=== PATIENT | female | born 1945 | race Caucasian/White ===

== ENCOUNTER 2020-04-05 09:19 | Emergency (ER) | payer MEDICARE, SELFPAY ==
[2020-04-05 09:48] VITALS: BP 162/51; PULSE 58; RESP 16; TEMP 36.8; O2SAT 97; BMI 34.9
--- NOTE | 2020-04-05 09:57 | CT_ITS ---
EXAMINATION: CT HEAD WITHOUT CONTRAST CT CERVICAL SPINE WITHOUT CONTRAST CLINICAL INFORMATION: Status post fall with head injury. No loss of consciousness. COMPARISON: 04/07/2009 TECHNIQUE: Multidetector CT imaging of the head and cervical spine was performed without the use of intravenous contrast. Multiplanar reformats are reviewed. This CT examination was performed using dose optimization techniques as appropriate, variously including the following: *Automated exposure control *Adjustment of mA and/or kV according to patient size (this includes techniques or standardized protocols for targeted exams where dose is matched to indication/reason for exam; i.e. extremities or head) *Use of iterative reconstruction technique DLP: 1143 mGy-cm. FINDINGS: There is no evidence of acute intracranial hemorrhage or territorial infarction. No abnormal mass effect or midline shift is seen. Penaloza to white matter differentiation is well preserved. No extra-axial fluid collections are identified. The ventricles are normal in size. Coarse bilateral basal ganglial calcifications, more pronounced on the left. Soft tissue swelling/subgaleal hematoma along the right frontal calvarium. Underlying calvarium intact. The mastoid air cells and visualized portions of the paranasal sinuses are well-aerated. Atlantooccipital alignment is maintained. The vertebral bodies and posterior elements align normally. No acute fracture or subluxation. Vertebral body heights are preserved. Prominent endplate osteophytes present at C5-C6 and C6-C7. Facet arthropathy throughout the cervical spine with ankylosis of the posterior articular pillars bilaterally at C3-C4 and C4-C5. This results in slight anterolisthesis of C3 on C4. Posterior osteophytic ridging present at C3-C4 and C4-C5. There is at least moderate central canal stenosis at C5-C6 and mild central canal stenosis at C6-C7. There is at least mild left foraminal narrowing at C5-C6. The cervicomedullary junction and spinal cord are grossly unremarkable. The paraspinal soft tissues are unremarkable. The imaged lung apices are clear CT/CT cervical spine wo con IMPRESSION: No acute intracranial pathology. No cervical spine fracture or malalignment.
--- NOTE | 2020-04-05 09:57 | XR_ITS ---
EXAMINATION: XR SHOULDER, LEFT CLINICAL INFORMATION: Status post fall with left shoulder pain and injury COMPARISON: None TECHNIQUE: AP external rotation and scapular Y views of the left shoulder. FINDINGS: There is normal alignment without acute fracture or dislocation. There is glenohumeral and upper mid clavicular joint space narrowing with associated hypertrophic changes. Overlying soft tissues are normal. The visualized portion of the lungs is clear. XR/XR shoulder LT min 2V IMPRESSION: Degenerative changes of the left shoulder. No acute fracture or dislocation.
--- NOTE | 2020-04-05 09:57 | XR_ITS ---
EXAMINATION: XR CHEST CLINICAL INFORMATION: Status post fall COMPARISON: None TECHNIQUE: 2 views of the chest were obtained. FINDINGS: Normal cardiomediastinal silhouette. Lungs are clear without focal consolidation. No pleural effusion or pneumothorax. No acute osseous abnormality. Multilevel degenerative changes of the spine. XR/XR chest 2V IMPRESSION: No acute disease within the chest.
--- NOTE | 2020-04-05 09:57 | XR_ITS ---
EXAMINATION: XR KNEE, LEFT CLINICAL INFORMATION: Status post fall with left knee pain/injury COMPARISON: 03/15/2010 TECHNIQUE: Four views of the left knee. FINDINGS: There is a left knee arthroplasty. The hardware appears intact without complication. No acute fracture or dislocation. There are vascular calcifications. Overlying soft tissues are intact. XR/XR knee LT 4V IMPRESSION: No acute bony abnormality of the left knee. Status post left knee arthroplasty. Hardware is intact without acute complication.
--- NOTE | 2020-04-05 09:58 | ED.FALL ---
HPI - Fall General Chief Complaint: Fall Stated Complaint: fall head injury Time Seen by Provider: 04/05/20 09:42 Source: patient Mode of arrival: ambulatory Limitations: no limitations History of Present Illness HPI Narrative: 74yoF c PMHx of DM, hypertension, hypothyroidism, gout, GERD and bilateral knee replacement presenting to the ED after she had a mechanical fall at [employer] yesterday where she was walking around a car that was parked lost her balance fell to the ground injuring her right forehead/left shoulder and left knee. Since then has been having a persistent headache to the frontal aspect of her head. The fall was witnessed by her . Patient denies loss of consciousness. Patient denies being on any blood thinners. Patient was seen at urgent care this morning and referred to the ER. Patient denies any symptoms prior to the fall. She denies any dizziness, changes in vision, nausea/vomiting, palpitations, chest pain or shortness of breath, any symptoms or any other symptoms complaints or concerns at this time. Related Data Previous Rx's Medication Instructions Recorded acetaminophen [Tylenol Extra 1,000 mg PO Q6H PRN #10 tab 04/05/20 Strength] Allergies Allergy/AdvReac Type Severity Reaction Status Date / Time meperidine [From DEMEROL] Allergy Unknown UNKNOWN Verified 04/05/20 10:02 morphine [MORPHINE] Allergy Unknown SLEEPY Verified 04/05/20 10:02 Review of Systems Review of Systems: Constitutional : No changes in activity, No lethargy, No recent prior head injury, No agitation, No increased fussiness ENT/Mouth : No Ear Pain, No Nasal discharge/drainage Eyes: No Eye Pain, No Swelling, No Redness, No Foreign Body, No Vision Changes Cardiovascular : No Chest Pain, No SOB Respiratory : No Cough Gastrointestinal : No Nausea, No Vomiting, No abdominal Pain Genitourinary : No Dysuria, No Urinary Frequency, No Urinary Incontinence, No Urgency, No Flank Pain Musculoskeletal : + joint pain, No neck stiffness, No back pain/injury Skin : No lacerations Neuro : + Headache, No unsteady gait, No Paresthesias, No Loss of Consciousness, No altered mental status Yes all other systems are reviewed and are negative [facility] Past Medical History Attestation statement: The following information was validated with the patient. Medical History Diabetes GERD (gastroesophageal reflux disease) Gout Hypertension Hypothyroid Surgical History History of bilateral knee replacement Social History Social History Smoking Status: Never smoker Use of substances other than those prescribed or required for medical reasons: No Advance Directives: No Advance Directives Information Provided: No Physical Exam Vital Signs: Vital Signs: Last Vital Signs Temp 98.2 F 04/05/20 09:48 Pulse 60 04/05/20 10:16 Resp 16 04/05/20 10:16 BP 153/57 H 04/05/20 10:16 Pulse Ox 98 04/05/20 10:16 Body Mass Index 34.9 Vital signs have been reviewed as normal and appeared to be correct. Blood pressure normal. Heart rate normal. Respiration rate normal. Temperature normal. Oxygen saturation normal. Appearance: Alert. Oriented X3. No acute distress. Head: Patient c ecchymosis, abrasion and tenderness to palpation and soft tissue swelling to right aspect of forehead. Otherwise the rest of the external exam is normal. No lacerations/foreign bodies/obvious deformities noted. No Able to rotate head bilaterally. Eyes: PERRLA. EOMI. No nystagmus noted. Conjunctiva and sclera normal. Eyelids normal. Corneal reflex normal. ENT: EAC normal. TM's Normal. No septal hematoma. No hemotympanum noted. Hearing normal. Pharynx normal. Uvula midline. tongue midline. Moist mucous membranes. No trismus noted. No drooling noted. No muffled voice noted. Neck: Normal inspection. Neck supple. FROM. No adenopathy. Thyroid Normal. No meningeal signs. No neck mass noted. CVS: Normal heart rate and rhythm. Heart sound normal. No murmurs noted. Pulses normal throughout. Respiratory: No respiratory distress. Painless inspiration. Breath sounds normal. No wheezes/rales/rhonchi noted. Chest nontender. No accessory muscle usage noted or decreased air movement noted. Back: Full range of motion noted. Skin: Skin warm and dry. Normal skin color. Normal skin turgor. No rashes/lesions/lacerations noted. Extremities: Tenderness to palpation to anterior left AC joint. No obvious deformities noted. Patient has full range of motion. No abrasions/lacerations/ecchymosis/foreign bodies/ecchymosis. Patient with ecchymosis to left knee at the patellar aspect with mild soft tissue swelling and tenderness to palpation. No obvious deformities noted. Patient has full range of motion noted. No laxity noted. No abrasion/laceration/foreign bodies noted. Otherwise all other Extremities exhibit normal range of motion and nontender. Able to shrug shoulders bilaterally and keep up against resistance. Neuro: Oriented X 3. No motor deficit. No sensory deficit. Reflexes normal. Moving all extremities. No focal motor deficits. Cranial nerves II-XI intact bilaterally. Facial strength normal. Normal cognition. Speech normal. Gait normal. Strength 5/5 throughout. No pronator drift. No tremor noted. No fasciculations noted. Muscle tone normal throughout. No asterixis noted. Raxbah-kb-wfld test normal. Heel to dunbar test normal. No rigidity noted. Course Course Course Narrative: 10am - 74yoF c PMHx of DM, HTN, hypothyroidism, gout, GERD and bilateral knee replacement presenting to the ED after she had a mechanical fall at [employer] c head injury no loc/blood thinners c persistent headache, pain to left shoulder/left knee - On Exam patient is alert and oriented x3. No focal neuro deficits noted. Not in any acute distress. Patient noted to have soft tissue swelling/ecchymosis to right forehead, tenderness to palpation to left shoulder and left knee. No obvious deformities full range of motion laxity noted. Patient has a normal steady gait. - Plan: Labs, CT scan of brain/cervical spine, CXR, left shoulder/left knee xray. Update the patient's tetanus provide tylenol for the patient's headache and re-evaluate. Reevaluation(s) Reevaluation #1: - BUN 29. TSH level 8.02. Otherwise all other labs WNL. - CXR WNL. CT scan of brain/cervical spine revealed chronic changes and patient is noted to have coarse bilateral basal ganglia calcifications more pronounced on the left and a soft tissue swelling/subgaleal hematoma along the right frontal calvarium. Otherwise no other acute processes. Xray of left shoulder/left knee processes noted. - patient is not having any thyroid pain at this time therefore I will instruct the patient to follow up her primary care provider tomorrow for further evaluation and treatment of her elevated thyroid. - I offered the patient a L of IV fluids although she declined and reported that she can drink p.o. fluids at home or Gatorade I suggested as well. Instructed to return if any new or worsening symptoms and to follow up with primary care provider. Patient understands agrees the plan. MDM - Fall Differential Diagnosis Differential diagnosis: Likely dislocation, fracture, compression fracture and concussion with loss of consciousness Medical Records Attestation: I reviewed the patient's medical records. Lab Data Attestation: I reviewed the patient's lab results. Result diagrams: 04/05/20 11:09 04/05/20 11:09 Labs: Lab Results 04/05/20 04/05/20 04/05/20 Range/Units 10:58 10:58 11:09 WBC 9.0 (4.8-10.8) X10*3/uL RBC 3.88 L (4.20-5.50) X10*6/uL Hgb 11.7 L (12.0-16.0) g/dl Hct 36.2 L (37-47) % MCV 93.3 (80-98) fL MCH 30.2 (27.0-33.0) pg MCHC 32.3 (31.0-35.0) g/dl RDW 14.0 (11.0-16.0) % Plt Count 240 (160-400) X10*3/uL MPV 11.6 (9.4-12.3) fL Immature Gran % (Auto) 0.4 (0.0-0.4) % Neut % (Auto) 60.4 (45-73) % Lymph % (Auto) 29.3 (20-40) % [place] % (Auto) 7.2 (2-11) % Eos % (Auto) 2.1 (0-4) % Baso % (Auto) 0.6 (0-2) % Lymph # (Auto) 2.6 (1.2-4.9) X10*3/uL [place] # (Auto) 0.7 (0.1-1.2) X10*3/uL Eos # (Auto) 0.2 (0.0-0.4) X10*3/uL Baso # (Auto) 0.1 (0.0-0.2) X10*3/uL Abs Immat Gran (auto) 0.04 H (0.00-0.03) X10*3/uL Absolute Neuts (auto) 5.4 (2.0-8.3) X10*3/uL Absolute Nucleated RBC 0.000 (0.0-0.012) X10*3/uL Nucleated RBC % (auto) 0.0 (0.0-0.2) /100WBC Hold Purple Top PT (10.8-13.0) SEC INR (0.9-1.1) APTT (24.1-38.0) SEC Hold Blue Top Sodium (135-145) mmol/L Potassium (3.3-5.1) mmol/l Chloride (96-108) mmol/L Carbon Dioxide (22-29) mmol/L Anion Gap (12-20) BUN (9-16) mg/dL Creatinine (0.5-1.4) mg/dL Estim Creat Clear Calc Estimated GFR Random Glucose (60-115) mg/dL Calcium (8.4-10.2) mg/dL Magnesium (1.6-2.6) mg/dL TSH (0.32-4.0) uIU/mL Urine Color STRAW Urine Appearance CLEAR Urine pH 7.0 (5.0-8.0) Ur Specific Hoople <= 1.005 (1.005-1.025) Urine Protein NEG (NEG-TRACE) MG/DL Urine Glucose (UA) NEG (NEG) MG/DL Urine Ketones NEG (NEG) MG/DL Urine Blood NEG (NEG) Urine Nitrite NEG (NEG) Ur Leukocyte Esterase NEG (NEG) Coronavirus (PCR) NEGATIVE (Negative) Influenza Type A (PCR) NEGATIVE (Negative) Influenza Type B (PCR) NEGATIVE (Negative) RSV RNA Qual (PCR) NEGATIVE (Negative) 04/05/20 04/05/20 04/05/20 Range/Units 11:09 11:09 11:09 WBC (4.8-10.8) X10*3/uL RBC (4.20-5.50) X10*6/uL Hgb (12.0-16.0) g/dl Hct (37-47) % MCV (80-98) fL MCH (27.0-33.0) pg MCHC (31.0-35.0) g/dl RDW (11.0-16.0) % Plt Count (160-400) X10*3/uL MPV (9.4-12.3) fL Immature Gran % (Auto) (0.0-0.4) % Neut % (Auto) (45-73) % Lymph % (Auto) (20-40) % [place] % (Auto) (2-11) % Eos % (Auto) (0-4) % Baso % (Auto) (0-2) % Lymph # (Auto) (1.2-4.9) X10*3/uL [place] # (Auto) (0.1-1.2) X10*3/uL Eos # (Auto) (0.0-0.4) X10*3/uL Baso # (Auto) (0.0-0.2) X10*3/uL Abs Immat Gran (auto) (0.00-0.03) X10*3/uL Absolute Neuts (auto) (2.0-8.3) X10*3/uL Absolute Nucleated RBC (0.0-0.012) X10*3/uL Nucleated RBC % (auto) (0.0-0.2) /100WBC Hold Purple Top SEE NOTE PT 11.6 (10.8-13.0) SEC INR 1.0 (0.9-1.1) APTT 29.8 (24.1-38.0) SEC Hold Blue Top SEE NOTE Sodium 142 (135-145) mmol/L Potassium 4.8 (3.3-5.1) mmol/l Chloride 104 (96-108) mmol/L Carbon Dioxide 26 (22-29) mmol/L Anion Gap 17 (12-20) BUN 29 H (9-16) mg/dL Creatinine 1.40 (0.5-1.4) mg/dL Estim Creat Clear Calc 34.6 Estimated GFR 37 Random Glucose 126 H (60-115) mg/dL Calcium 9.3 (8.4-10.2) mg/dL Magnesium 1.7 (1.6-2.6) mg/dL TSH 8.02 H (0.32-4.0) uIU/mL Urine Color Urine Appearance Urine pH (5.0-8.0) Ur Specific Hoople (1.005-1.025) Urine Protein (NEG-TRACE) MG/DL Urine Glucose (UA) (NEG) MG/DL Urine Ketones (NEG) MG/DL Urine Blood (NEG) Urine Nitrite (NEG) Ur Leukocyte Esterase (NEG) Coronavirus (PCR) (Negative) Influenza Type A (PCR) (Negative) Influenza Type B (PCR) (Negative) RSV RNA Qual (PCR) (Negative) Imaging Data CT scan of brain/cervical spine: Attestation: I personally reviewed and interpreted this imaging study as follows: Radiologist's impression: FINDINGS: There is no evidence of acute intracranial hemorrhage or territorial infarction. No abnormal mass effect or midline shift is seen. Penaloza to white matter differentiation is well preserved. No extra-axial fluid collections are identified. The ventricles are normal in size. Coarse bilateral basal ganglial calcifications, more pronounced on the left. Soft tissue swelling/subgaleal hematoma along the right frontal calvarium. Underlying calvarium intact. The mastoid air cells and visualized portions of the paranasal sinuses are well-aerated. Atlantooccipital alignment is maintained. The vertebral bodies and posterior elements align normally. No acute fracture or subluxation. Vertebral body heights are preserved. Prominent endplate osteophytes present at C5-C6 and C6-C7. Facet arthropathy throughout the cervical spine with ankylosis of the posterior articular pillars bilaterally at C3-C4 and C4-C5. This results in slight anterolisthesis of C3 on C4. Posterior osteophytic ridging present at C3-C4 and C4-C5. There is at least moderate central canal stenosis at C5-C6 and mild central canal stenosis at C6-C7. There is at least mild left foraminal narrowing at C5-C6. The cervicomedullary junction and spinal cord are grossly unremarkable. The paraspinal soft tissues are unremarkable. The imaged lung apices are clear CT/CT head/brain wo con IMPRESSION: No acute intracranial pathology. No cervical spine fracture or malalignment. Left knee x-ray: Attestation: I personally reviewed and interpreted this imaging study as follows: Radiologist's impression: FINDINGS: There is a left knee arthroplasty. The hardware appears intact without complication. No acute fracture or dislocation. There are vascular calcifications. Overlying soft tissues are intact. XR/XR knee LT 4V IMPRESSION: No acute bony abnormality of the left knee. Status post left knee arthroplasty. Hardware is intact without acute complication. Left shoulder x-ray: Attestation: I personally reviewed and interpreted this imaging study as follows: Radiologist's impression: FINDINGS: There is normal alignment without acute fracture or dislocation. There is glenohumeral and upper mid clavicular joint space narrowing with associated hypertrophic changes. Overlying soft tissues are normal. The visualized portion of the lungs is clear. XR/XR shoulder LT min 2V IMPRESSION: Degenerative changes of the left shoulder. No acute fracture or dislocation. Chest x-ray: Attestation: I personally reviewed and interpreted this imaging study as follows: Radiologist's impression: FINDINGS: Normal cardiomediastinal silhouette. Lungs are clear without focal consolidation. No pleural effusion or pneumothorax. No acute osseous abnormality. Multilevel degenerative changes of the spine. XR/XR chest 2V IMPRESSION: No acute disease within the chest. Discharge Plan Discharge Clinical Impression: Head injury with loss of consciousness, Hematoma, Dehydration, Elevated TSH Fall Qualifiers: Encounter type: initial encounter Qualified Code(s): W19.XXXA - Unspecified fall, initial encounter Concussion Qualifiers: Encounter type: initial encounter Loss of consciousness presence/duration: without LOC Qualified Code(s): S06.0X0A - Concussion without loss of consciousness, initial encounter Patient Disposition: Home, Self-Care Instructions: Dehydration (ED), Hypothyroidism (ED), Concussion (ED), Fall Prevention for Older Adults (ED), Hematoma (ED) Additional Instructions: Your TSH level is 8.02 it is high therefore you should contact your doctor tomorrow for further evaluation and treatment 4 year history of hypothyroidism. Please continue taking all your previously prescribed medications as previously prescribed. Please increase your p.o. intake drink water or Gatorade. Return if any new or worsening symptoms. Prescriptions: New acetaminophen [Tylenol Extra Strength] 500 mg tablet 1,000 mg PO Q6H PRN (Reason: pain) Qty: 10 RF: 0 Referrals: Physician,Unknown [Primary Care Provider] - 2 days (your pcp) Print Language: Nepali
[2020-04-05] MEDS: Acetaminophen 325 MG TABLET 975 MG PO (10:11)
[2020-04-05 10:16] VITALS: BP 153/57; PULSE 60; RESP 16; O2SAT 98
[2020-04-05 11:19] LABS: MANUAL DIFF FLAG NO
[2020-04-05 11:20] LABS: Basophils Absolute Auto 0.1 X10*3/uL (0.0-0.2); Basophils Percent Auto 0.6 % (0-2); Eosinophils Absolute Auto 0.2 X10*3/uL (0.0-0.4); Eosinophils Percent Auto 2.1 % (0-4); Hematocrit 36.2 % (37-47); Hemoglobin 11.7 g/dl (12.0-16.0); Imm Gran Abs Auto 0.04 X10*3/uL (0.00-0.03); Imm Gran Pct Auto 0.4 % (0.0-0.4); Lymphocytes Absolute Auto 2.6 X10*3/uL (1.2-4.9); Lymphocytes Percent Auto 29.3 % (20-40); Mean Corpuscular HGB Conc 32.3 g/dl (31.0-35.0); Mean Corpuscular Hemoglobin 30.2 pg (27.0-33.0); Mean Corpuscular Volume 93.3 fL (80-98); Mean Platelet Volume 11.6 fL (9.4-12.3); Monocytes Absolute Auto 0.7 X10*3/uL (0.1-1.2); Monocytes Percent Auto 7.2 % (2-11); Neutrophils Absolute Auto 5.4 X10*3/uL (2.0-8.3); Neutrophils Percent Auto 60.4 % (45-73); Platelet Count 240 X10*3/uL (160-400); Red Blood Count 3.88 X10*6/uL (4.20-5.50)
[2020-04-05 11:24] LABS: Glucose Urine UA NEG (NEG); Leukocyte Esterase Urine NEG (NEG); Nitrite Urine NEG (NEG); Specific Gravity - Urine <= 1.005 (1.005-1.025); Urine Blood NEG (NEG); Urine Ketones NEG (NEG); Urine Protein NEG (NEG-TRACE)
[2020-04-05 11:25] LABS: Appearance Urine CLEAR; Color Urine STRAW
[2020-04-05 11:27] LABS: Prothrombin Time 11.6 SEC (10.8-13.0)
[2020-04-05 11:29] LABS: Partial Thromboplastin Time 29.8 SEC (24.1-38.0)
[2020-04-05 11:43] LABS: Anion Gap 17 (12-20); Blood Urea Nitrogen 29 mg/dL (9-16); Carbon Dioxide 26 mmol/L (22-29); Chloride 104 mmol/L (96-108); Creatinine Clr Calc Pharmacy 34.6; Estimated Glomerular Filt Rate 37; Glucose Random 126 mg/dL (60-115); Magnesium 1.7 mg/dL (1.6-2.6); Potassium 4.8 mmol/l (3.3-5.1); Sodium 142 mmol/L (135-145)
[2020-04-05 11:45] LABS: Calcium 9.3 mg/dL (8.4-10.2)
[2020-04-05 12:13] LABS: Influenza A PCR NEGATIVE (Negative); Influenza B PCR NEGATIVE (Negative); Resp Syncy Virus RNA Qual PCR NEGATIVE (Negative); SARS COV2 PCR INHOUSE NEGATIVE (Negative)
[2020-04-05 12:19] LABS: Thyroid Stimulating Hormone 8.02 uIU/mL (0.32-4.0)
[2020-04-05 13:33] VITALS: BP 132/37; PULSE 70; RESP 16; TEMP 36.5; O2SAT 97
== END 2020-04-05 13:40 | disposition home or self-care (01) ==
PROVIDERS: Physician Assistant Medical; Emergency Provider Internal Medicine
DX: S06.0X1A Concussion with loss of consciousness of 30 minutes or less, initial encounter (principal); S00.91XA Abrasion of unspecified part of head, initial encounter; E86.0 Dehydration; G44.309 Post-traumatic headache, unspecified, not intractable; M54.2 Cervicalgia; M25.562 Pain in left knee; W01.0XXA Fall on same level from slipping, tripping and stumbling without subsequent striking against object, initial encounter; Y93.01 Activity, walking, marching and hiking; Y92.488 Other paved roadways as the place of occurrence of the external cause; Y99.9 Unspecified external cause status; Z20.822 Contact with and (suspected) exposure to COVID-19; Z79.899 Other long term (current) drug therapy; Z23 Encounter for immunization
CPT/HCPCS: 0241U; 36415; 70450; 71046; 72125; 73030; 73564; 80048; 81003; 83735; 84443; 85025; 85610; 85730; 90471; 90715; 96360; 99284

== ENCOUNTER 2020-08-14 09:58 | Emergency (ER) | payer MEDICARE, SELFPAY ==
--- NOTE | ~2020-08-14 | XR_ITS ---
EXAMINATION: XR CHEST CLINICAL INFORMATION: Cough. COMPARISON: None TECHNIQUE: Frontal view of the chest was obtained. FINDINGS: No significant abnormality is noted involving the heart, lungs, mediastinum, bony thorax or soft tissues. XR/XR chest 1V IMPRESSION: Unremarkable chest examination.
[2020-08-14 10:21] VITALS: BP 147/79; PULSE 60; RESP 15; TEMP 36.8; O2SAT 98; BMI 34.0
--- NOTE | 2020-08-14 10:26 | ED_ITS ---
HPI - General Adult General Chief complaint: General Medical Stated complaint: VOMITING NAUSEA Time Seen by Provider: 08/14/20 10:20 Source: patient Mode of arrival: ambulatory Limitations: no limitations History of Present Illness HPI narrative: Patient presents to ED for sore throat, nausea, chills, fatigue and body aches since Monday. Patient states her glucose also has been high. Patient denies any urinary complaints. Patient denies any slurred speech, loss of vision, paralysis of extremities, or dizziness apparent. Patient denies any abdominal pain, dysuria, hematuria, flank pain, slurred speech, loss of vision, headache, facial droop, or paralysis of extremities. Related Data Previous Rx's Medication Instructions Recorded acetaminophen [Tylenol Extra 1,000 mg PO Q6H PRN #10 tab 04/05/20 Strength] Allergies Allergy/AdvReac Type Severity Reaction Status Date / Time meperidine [From DEMEROL] Allergy Unknown UNKNOWN Verified 04/05/20 10:02 morphine [MORPHINE] Allergy Unknown SLEEPY Verified 04/05/20 10:02 Review of Systems Review of Systems: Yes all other systems are reviewed and are negative Constitutional: Constitutional: Reports as per HPI and Reports no additional constitutional complaints Eyes: Eyes: Reports as per HPI and Reports no additional eye complaints ENT: Reports system reviewed and no additional complaints, except as documented, Reports as per HPI and Reports sore throat Cardiovascular: Cardiovascular: Reports as per HPI, Reports no additional cardiovascular complaints and Denies chest pain Respiratory: Respiratory: Reports as per HPI, Reports no additional respiratory complaints and Reports cough Gastrointestinal: Gastrointestinal: Reports as per HPI, Reports no additional gastrointestinal complaints and Denies abdominal pain Genitourinary: Genitourinary: Reports no additional female genitourinary complaints and Reports as per HPI Musculoskeletal: Musculoskeletal: Reports no additional musculoskeletal complaints and Reports as per HPI Neurologic: Reports system reviewed and no additional complaints, except as documented and Reports as per HPI Psychiatric: Psychiatric: Reports no additional psychiatric complaints and Reports as per HPI PMFSH Past Medical History Medical History Diabetes GERD (gastroesophageal reflux disease) Gout Hypertension Hypothyroid Surgical History History of bilateral knee replacement Social History Social History Alcohol intake: never Smoked in Last 30 Days: No Use of substances other than those prescribed or required for medical reasons: No Advance Directives: No Advance Directives Information Provided: Yes Physical Exam Vital Signs: Vital Signs: Last Vital Signs Temp 98.2 F 08/14/20 10:21 Pulse 60 08/14/20 10:21 Resp 15 08/14/20 10:21 BP 147/79 H 08/14/20 10:21 Pulse Ox 98 08/14/20 10:21 Body Mass Index 34.0 Const: General: cooperative, healthy appearing, comfortable, no acute distress, well developed, alert and awake Orientation/consciousness: patient oriented x3 HENMT: Head: Yes normal to inspection, Yes No palpable skull fracture present, Yes normocephalic and Yes atraumatic Eyes: General: appearance normal, both eyes and all related structures Neck: Neck: Yes normal visual inspection, Yes full ROM, Yes no lymphadenopathy, Yes no meningeal signs, Yes trachea midline, Yes supple and No tender Chest: Chest palpation & inspection: normal inspection of the chest and normal palpation of entire chest wall Resp: Effort & Inspection: normal respiratory effort and able to speak in complete sentences Auscultation: clear to auscultation bilaterally Cardio: Jugular venous distension: no JVD Heart sounds: S1 normal heart sound present and S2 normal heart sound present GI: Inspection: Yes normal to inspection and No abdominal wall ecchymosis Palpation (GI): Firmness to palpation present (GI), nontender, no guarding and not rigid : General: No CVA tenderness and Yes no CVA tenderness Back/Spine/Pelvis: Back: no CVA tenderness, No CVA tenderness and No back tenderness Skin: General skin exam: no rashes or lesions noted and elasticity normal Neuro: Other: Negative slurred speech. Negative facial droop. Negative pronator drift. All extremities equal strength 5+ intact. [id number] rapid hand movement intact General: patient oriented x3, gait normal, no meningeal signs and CN's II-XI intact bilaterally Cranial nerves: Yes CN's II-XII intact bilaterally Extrem: Other: Lower extremity is negative for any swelling, pitting edema, or calf tenderness. General: Yes normal to inspection and Yes full ROM Psych: Appearance: grossly normal, well kempt and not disheveled Course Course Course Narrative: Patient seems to be having viral syndrome but due to age with a cardiac evaluation which we will do EKG pre also look for source of infection x-ray and UA. Patient given fluid Reevaluation(s) Reevaluation #1: Patient's EKG negative for STEMI. Patient's blood work normal. Troponin after nausea sore throat and chills negative after having symptoms for 3 days. Liver enzymes normal. Negative failure white blood cell count. UA negative for UTI. Chest x-ray negative for pneumonia. Awaiting COVID swab. Reevaluation #2: Patient COVID swab came back negative and went to re-evaluate patient patient states she feels better. Patient like to be discharged. Patient's abdomen benign nontender and soft. COVID swab negative. Viral syndrome. Negative for any neuro deficit Medical Decision Making MDM Narrative Medical decision making narrative: Viral syndrome viral syndrome Lab Data Result diagrams: 08/14/20 10:58 08/14/20 10:58 Labs: Lab Results 08/14/20 08/14/20 08/14/20 Range/Units 10:58 10:58 10:58 WBC 8.7 (4.8-10.8) X10*3/uL RBC 4.01 L (4.20-5.50) X10*6/uL Hgb 12.0 (12.0-16.0) g/dl Hct 36.6 L (37-47) % MCV 91.3 (80-98) fL MCH 29.9 (27.0-33.0) pg MCHC 32.8 (31.0-35.0) g/dl RDW 14.2 (11.0-16.0) % Plt Count 265 (160-400) X10*3/uL MPV 11.7 (9.4-12.3) fL Immature Gran % (Auto) 0.3 (0.0-0.4) % Neut % (Auto) 63.1 (45-73) % Lymph % (Auto) 25.6 (20-40) % [place] % (Auto) 7.9 (2-11) % Eos % (Auto) 2.8 (0-4) % Baso % (Auto) 0.3 (0-2) % Lymph # (Auto) 2.2 (1.2-4.9) X10*3/uL [place] # (Auto) 0.7 (0.1-1.2) X10*3/uL Eos # (Auto) 0.2 (0.0-0.4) X10*3/uL Baso # (Auto) 0.0 (0.0-0.2) X10*3/uL Abs Immat Gran (auto) 0.03 (0.00-0.03) X10*3/uL Absolute Neuts (auto) 5.5 (2.0-8.3) X10*3/uL Absolute Nucleated RBC 0.000 (0.0-0.012) X10*3/uL Nucleated RBC % (auto) 0.0 (0.0-0.2) /100WBC PT 11.9 (10.8-13.0) SEC INR 1.0 (0.9-1.1) APTT 34.1 (24.1-38.0) SEC Sodium 139 (135-145) mmol/L Potassium 4.7 (3.3-5.1) mmol/L Chloride 107 (96-108) mmol/L Carbon Dioxide 21 L (22-29) mmol/L Anion Gap 16 (12-20) BUN 24 H (9-16) mg/dL Creatinine 1.38 (0.5-1.4) mg/dL Estim Creat Clear Calc 34.1 Estimated GFR 37 Random Glucose 146 H (60-115) mg/dL Calcium 9.3 (8.4-10.2) mg/dL Total Bilirubin 0.6 (0.0-1.0) mg/dL AST 19 (5-31) U/L ALT 16 (0-31) U/L Alkaline Phosphatase 100 (39-117) U/L Troponin I High Sens (<3.5-17.0) ng/L Total Protein 6.9 (6.5-8.0) g/dL Albumin 4.1 (3.5-5.0) g/dL Urine Color Urine Appearance Urine pH (5.0-8.0) Ur Specific [place] (1.005-1.025) Urine Protein (NEG-TRACE) MG/DL Urine Glucose (UA) (NEG) MG/DL Urine Ketones (NEG) MG/DL Urine Blood (NEG) Urine Nitrite (NEG) Ur Leukocyte Esterase (NEG) Coronavirus (PCR) (Negative) Influenza Type A (PCR) (Negative) Influenza Type B (PCR) (Negative) RSV RNA Qual (PCR) (Negative) S. pyogenes GrpA VIANNEY (Negative) 08/14/20 08/14/20 08/14/20 Range/Units 10:58 10:58 10:58 WBC (4.8-10.8) X10*3/uL RBC (4.20-5.50) X10*6/uL Hgb (12.0-16.0) g/dl Hct (37-47) % MCV (80-98) fL MCH (27.0-33.0) pg MCHC (31.0-35.0) g/dl RDW (11.0-16.0) % Plt Count (160-400) X10*3/uL MPV (9.4-12.3) fL Immature Gran % (Auto) (0.0-0.4) % Neut % (Auto) (45-73) % Lymph % (Auto) (20-40) % [place] % (Auto) (2-11) % Eos % (Auto) (0-4) % Baso % (Auto) (0-2) % Lymph # (Auto) (1.2-4.9) X10*3/uL [place] # (Auto) (0.1-1.2) X10*3/uL Eos # (Auto) (0.0-0.4) X10*3/uL Baso # (Auto) (0.0-0.2) X10*3/uL Abs Immat Gran (auto) (0.00-0.03) X10*3/uL Absolute Neuts (auto) (2.0-8.3) X10*3/uL Absolute Nucleated RBC (0.0-0.012) X10*3/uL Nucleated RBC % (auto) (0.0-0.2) /100WBC PT (10.8-13.0) SEC INR (0.9-1.1) APTT (24.1-38.0) SEC Sodium (135-145) mmol/L Potassium (3.3-5.1) mmol/L Chloride (96-108) mmol/L Carbon Dioxide (22-29) mmol/L Anion Gap (12-20) BUN (9-16) mg/dL Creatinine (0.5-1.4) mg/dL Estim Creat Clear Calc Estimated GFR Random Glucose (60-115) mg/dL Calcium (8.4-10.2) mg/dL Total Bilirubin (0.0-1.0) mg/dL AST (5-31) U/L ALT (0-31) U/L Alkaline Phosphatase (39-117) U/L Troponin I High Sens < 3.5 (<3.5-17.0) ng/L Total Protein (6.5-8.0) g/dL Albumin (3.5-5.0) g/dL Urine Color Urine Appearance Urine pH (5.0-8.0) Ur Specific [place] (1.005-1.025) Urine Protein (NEG-TRACE) MG/DL Urine Glucose (UA) (NEG) MG/DL Urine Ketones (NEG) MG/DL Urine Blood (NEG) Urine Nitrite (NEG) Ur Leukocyte Esterase (NEG) Coronavirus (PCR) NEGATIVE (Negative) Influenza Type A (PCR) NEGATIVE (Negative) Influenza Type B (PCR) NEGATIVE (Negative) RSV RNA Qual (PCR) NEGATIVE (Negative) S. pyogenes GrpA VIANNEY Negative (Negative) 08/14/20 08/14/20 Range/Units 14:00 14:19 WBC (4.8-10.8) X10*3/uL RBC (4.20-5.50) X10*6/uL Hgb (12.0-16.0) g/dl Hct (37-47) % MCV (80-98) fL MCH (27.0-33.0) pg MCHC (31.0-35.0) g/dl RDW (11.0-16.0) % Plt Count (160-400) X10*3/uL MPV (9.4-12.3) fL Immature Gran % (Auto) (0.0-0.4) % Neut % (Auto) (45-73) % Lymph % (Auto) (20-40) % [place] % (Auto) (2-11) % Eos % (Auto) (0-4) % Baso % (Auto) (0-2) % Lymph # (Auto) (1.2-4.9) X10*3/uL [place] # (Auto) (0.1-1.2) X10*3/uL Eos # (Auto) (0.0-0.4) X10*3/uL Baso # (Auto) (0.0-0.2) X10*3/uL Abs Immat Gran (auto) (0.00-0.03) X10*3/uL Absolute Neuts (auto) (2.0-8.3) X10*3/uL Absolute Nucleated RBC (0.0-0.012) X10*3/uL Nucleated RBC % (auto) (0.0-0.2) /100WBC PT (10.8-13.0) SEC INR (0.9-1.1) APTT (24.1-38.0) SEC Sodium (135-145) mmol/L Potassium (3.3-5.1) mmol/L Chloride (96-108) mmol/L Carbon Dioxide (22-29) mmol/L Anion Gap (12-20) BUN (9-16) mg/dL Creatinine (0.5-1.4) mg/dL Estim Creat Clear Calc Estimated GFR Random Glucose (60-115) mg/dL Calcium (8.4-10.2) mg/dL Total Bilirubin (0.0-1.0) mg/dL AST (5-31) U/L ALT (0-31) U/L Alkaline Phosphatase (39-117) U/L Troponin I High Sens (<3.5-17.0) ng/L Total Protein (6.5-8.0) g/dL Albumin (3.5-5.0) g/dL Urine Color STRAW STRAW Urine Appearance CLEAR CLEAR Urine pH 5.5 5.5 (5.0-8.0) Ur Specific [place] <= 1.005 <= 1.005 (1.005-1.025) Urine Protein NEG NEG (NEG-TRACE) MG/DL Urine Glucose (UA) NEG NEG (NEG) MG/DL Urine Ketones NEG NEG (NEG) MG/DL Urine Blood NEG NEG (NEG) Urine Nitrite NEG NEG (NEG) Ur Leukocyte Esterase NEG NEG (NEG) Coronavirus (PCR) (Negative) Influenza Type A (PCR) (Negative) Influenza Type B (PCR) (Negative) RSV RNA Qual (PCR) (Negative) S. pyogenes GrpA VIANNEY (Negative) ECG Data Interpretation: Sinus bradycardia. Pr interval 194. QRS 94. QTC 415. Negative STEMI Discharge Plan Discharge Clinical Impression: Acute viral syndrome Patient Disposition: Home, Self-Care Instructions: Viral Syndrome (ED), Fatigue (ED) Additional Instructions: Return to the ED for any chest pain, shortness of breath, headache, coughing up blood, fever, chills, swelling of lower extremities, calf pain, neck stiffness, weakness, slurred speech, loss of vision, paralysis of extremities, or any other concerning symptoms. EKG negative for heart attack. Troponin negative. COVID swab came back negative. Chest x-ray negative for pneumonia. Urinalysis came back negative for infection. Your blood count normal. Please follow-up with PCP Prescriptions: No Action acetaminophen [Tylenol Extra Strength] 500 mg tablet 1,000 mg PO Q6H PRN (Reason: pain) Qty: 10 RF: 0 Interventions: ED Discharge Assessment Last Done: 08/14/20 15:38 Discharge Date/Time: 08/14/20 15:41 Print Language: U[place]
--- NOTE | 2020-08-14 10:49 | ECG_ITS ---
Test Reason : WEAKNESS Blood Pressure : / mmHG Vent. Rate : 059 BPM Atrial Rate : 059 BPM P-R Int : 194 ms QRS Dur : 094 ms QT Int : 420 ms P-R-T Axes : 052 -35 032 degrees QTc Int : 415 ms Sinus bradycardia Left axis deviation Inferior infarct , age undetermined Cannot rule out Anterior infarct , age undetermined Abnormal ECG No previous ECGs available Referred By: Corona Mejia Electronically Signed By:Wei Quezada
[2020-08-14 11:03] LABS: MANUAL DIFF FLAG NO
[2020-08-14 11:06] LABS: Imm Gran Abs Auto 0.03 X10*3/uL (0.00-0.03); Imm Gran Pct Auto 0.3 % (0.0-0.4); Lymphocytes Percent Auto 25.6 % (20-40); Red Cell Distribution Width 14.2 % (11.0-16.0)
[2020-08-14] MEDS: 0.9 % Sodium Chloride 1,000 ML 999 ML IV (11:08)
[2020-08-14 11:10] LABS: Basophils Percent Auto 0.3 % (0-2); Eosinophils Absolute Auto 0.2 X10*3/uL (0.0-0.4); Eosinophils Percent Auto 2.8 % (0-4); Hematocrit 36.6 % (37-47); Lymphocytes Absolute Auto 2.2 X10*3/uL (1.2-4.9); Mean Corpuscular HGB Conc 32.8 g/dl (31.0-35.0); Mean Corpuscular Hemoglobin 29.9 pg (27.0-33.0); Mean Corpuscular Volume 91.3 fL (80-98); Mean Platelet Volume 11.7 fL (9.4-12.3); Monocytes Absolute Auto 0.7 X10*3/uL (0.1-1.2); Monocytes Percent Auto 7.9 % (2-11); Neutrophils Absolute Auto 5.5 X10*3/uL (2.0-8.3); Neutrophils Percent Auto 63.1 % (45-73); Platelet Count 265 X10*3/uL (160-400); Red Blood Count 4.01 X10*6/uL (4.20-5.50); White Blood Count 8.7 X10*3/uL (4.8-10.8)
[2020-08-14 11:11] LABS: Prothrombin Time 11.9 SEC (10.8-13.0)
[2020-08-14 11:14] LABS: Partial Thromboplastin Time 34.1 SEC (24.1-38.0)
[2020-08-14 11:19] LABS: IDNOW Serial# 9DD0AD1C; Strep A Nucleic Acid Negative (Negative)
[2020-08-14 11:38] LABS: Alanine Aminotransferase 16 U/L (0-31); Albumin Level 4.1 g/dL (3.5-5.0); Alkaline Phosphatase 100 U/L (39-117); Anion Gap 16 (12-20); Aspartate Amino Transferase 19 U/L (5-31); Bilirubin Total 0.6 mg/dL (0.0-1.0); Blood Urea Nitrogen 24 mg/dL (9-16); Calcium 9.3 mg/dL (8.4-10.2); Carbon Dioxide 21 mmol/L (22-29); Chloride 107 mmol/L (96-108); Creatinine Clr Calc Pharmacy 34.1; Estimated Glomerular Filt Rate 37; Glucose Random 146 mg/dL (60-115); Potassium 4.7 mmol/L (3.3-5.1); Sodium 139 mmol/L (135-145); Total Protein 6.9 g/dL (6.5-8.0)
[2020-08-14 11:41] LABS: Troponin-I High Sensitivity < 3.5 ng/L (<3.5-17.0)
[2020-08-14 11:49] LABS: Influenza A PCR NEGATIVE (Negative); Influenza B PCR NEGATIVE (Negative); Resp Syncy Virus RNA Qual PCR NEGATIVE (Negative); SARS COV2 PCR INHOUSE NEGATIVE (Negative)
[2020-08-14 14:10] LABS: Glucose Urine UA NEG (NEG); Leukocyte Esterase Urine NEG (NEG); Nitrite Urine NEG (NEG); PH 5.5 (5.0-8.0); Specific Gravity - Urine <= 1.005 (1.005-1.025); Urine Blood NEG (NEG); Urine Ketones NEG (NEG); Urine Protein NEG (NEG-TRACE)
[2020-08-14 14:12] LABS: Appearance Urine CLEAR; Color Urine STRAW
[2020-08-14 14:24] LABS: Glucose Urine UA NEG (NEG); Leukocyte Esterase Urine NEG (NEG); Nitrite Urine NEG (NEG); PH 5.5 (5.0-8.0); Specific Gravity - Urine <= 1.005 (1.005-1.025); Urine Blood NEG (NEG); Urine Ketones NEG (NEG); Urine Protein NEG (NEG-TRACE)
[2020-08-14 14:27] LABS: Appearance Urine CLEAR; Color Urine STRAW
== END 2020-08-14 15:41 | disposition home or self-care (01) ==
PROVIDERS: Physician Assistant; Emergency Provider Emergency Medicine Emergency Medical Services
DX: B34.9 Viral infection, unspecified (principal); Z20.822 Contact with and (suspected) exposure to COVID-19; R53.83 Other fatigue; J02.9 Acute pharyngitis, unspecified; E11.9 Type 2 diabetes mellitus without complications; I10 Essential (primary) hypertension; K21.9 Gastro-esophageal reflux disease without esophagitis
CPT/HCPCS: 0241U; 36415; 71045; 80053; 81003; 84484; 85025; 85610; 85730; 87651; 93005; 96360; 99284

== ENCOUNTER 2021-03-15 16:23 | Emergency (ER) | payer MEDICARE, SELFPAY | END 2021-03-15 22:06 | disposition left against medical advice (07) | LOC: HO.ED 21:53 | PROVIDERS: Emergency Provider Emergency Medicine | DX: R07.9 Chest pain, unspecified (principal) ==

== ENCOUNTER 2021-05-15 23:50 | Observation (INO) | payer MEDICARE, SELFPAY ==
--- NOTE | ~2021-05-15 | CT_ITS ---
EXAMINATION: CT ABDOMEN AND PELVIS WITHOUT CONTRAST CLINICAL INFORMATION: Severe abdominal pain, epigastric region COMPARISON: None TECHNIQUE: Multidetector volumetric imaging was performed from the superior aspect of the liver through the pubic symphysis. Sagittal and coronal reformatted images were obtained on the technologist's workstation. This CT examination was performed using dose optimization techniques as appropriate, variously including the following: *Automated exposure control *Adjustment of mA and/or kV according to patient size (this includes techniques or standardized protocols for targeted exams where dose is matched to indication/reason for exam; i.e. extremities or head) *Use of iterative reconstruction technique DLP: 694 mGy-cm FINDINGS: LUNG BASES: Small focal atelectasis versus consolidation is noted in the inferior lingula anteriorly. There is also a somewhat nodular focus measuring 9 mm in the posterior lingula. LIVER, GALLBLADDER, AND BILIARY TREE: The liver is normal in size, shape, and attenuation. No focal hepatic lesion or biliary ductal dilatation is present. Patient is status post cholecystectomy. PANCREAS: Unremarkable. SPLEEN: Unremarkable. ADRENAL GLANDS: Unremarkable. KIDNEYS AND URETERS: The kidneys are normal in size, shape, and attenuation. No hydronephrosis, hydroureter, or obstructing calculi seen. BLADDER: Nearly empty and not well evaluated. GASTROINTESTINAL TRACT: No evidence of bowel obstruction. There is sigmoid colon diverticulosis without diverticulitis. No free fluid or free air is seen. ABDOMINAL WALL: No significant hernia is appreciated. LYMPH NODES: Normal. VASCULAR: Scattered atherosclerotic calcifications are noted. PELVIC VISCERA: Patient is status post hysterectomy. OSSEOUS STRUCTURES: Degenerative changes are noted in the spine. CT/CT abdomen pelvis wo con IMPRESSION: 1. No acute findings identified in the abdomen/pelvis. 2. Somewhat nodular 9 mm focus in the lingula. Small region of atelectasis versus consolidation is also noted in the anterior lingula. This is of uncertain chronicity, and follow-up chest CT in 3 months is recommended. Fleischner guidelines were followed.
[2021-05-15 23:54] VITALS: BP 113/61; BP 138/76; PULSE 79; PULSE 90; RESP 16; TEMP 36.9; O2SAT 95; O2SAT 97; BMI 34.9
--- NOTE | 2021-05-15 23:59 | ED_ITS ---
HPI - Abdominal Pain General Chief Complaint: Abdominal Pain <ALY Flores Last Filed: 05/16/21 02:35> Stated Complaint: Abd Pain <ALY Flores Last Filed: 05/16/21 02:35> Time Seen by Provider: 05/15/21 23:58 <ALY Flores Last Filed: 05/16/21 02:35> Source: patient <ALY Flores Last Filed: 05/16/21 02:35> Mode of arrival: ambulatory <ALY Flores Last Filed: 05/16/21 02:35> Limitations: no limitations <ALY Flores Last Filed: 05/16/21 02:35> History of Present Illness HPI narrative: 75-year-old female past medical history significant for diabetes, gout GERD, gout, hypertension, hypothyroid presenting to the emergency department with 1 week of progressively worsening abdominal pain and diarrhea. She tells me today she has had 5 episodes of diarrhea, she tells me it is yellow/brown and completely liquid. She reports diffuse abdominal pain, describes it as a cramping pain it is worse in her epigastric region. Unable to tell me what makes the pain better or worse. She was seen at urgent care for the same issue about a week ago. She denies any recent antibiotic use. She denies nausea, vomiting, fevers, chills, chest pain, shortness of breath, weakness. <ALY Flores Last Filed: 05/16/21 02:35> MD elicited complaint: abdominal pain <ALY Flores Last Filed: 05/16/21 02:35> Pertinent past history: none <ALY Flores Last Filed: 05/16/21 02:35> Onset (ago): week(s) (1) <ALY Flores Last Filed: 05/16/21 02:35> Pain Consistency: constant <ALY Flores Last Filed: 05/16/21 02:35> Location: diffuse and epigastric <ALY Flores Last Filed: 05/16/21 02:35> Severity: moderate <ALY Flores - Last Filed: 05/16/21 02:35> Quality: cramping <ALY Flores - Last Filed: 05/16/21 02:35> Radiation: none <ALY Flores - Last Filed: 05/16/21 02:35> Migration to: no migration <ALY Flores - Last Filed: 05/16/21 02:35> Exacerbating factors: nothing <ALY Flores - Last Filed: 05/16/21 02:35> Relieving factors: nothing <ALY Flores - Last Filed: 05/16/21 02:35> Associated symptoms: denies other symptoms <ALY Flores Last Filed: 05/16/21 02:35> Related Data Home Medications: Previous Rx's Medication Instructions Recorded acetaminophen 500 mg tablet 1,000 mg PO Q6H PRN #10 tab 04/05/20 (Tylenol Extra Strength) <ALY Flores Last Filed: 05/16/21 02:35> Allergies/Adverse Reactions: Allergies Allergy/AdvReac Type Severity Reaction Status Date / Time meperidine [From DEMEROL] Allergy Unknown UNKNOWN Verified 04/05/20 10:02 morphine [MORPHINE] Allergy Unknown SLEEPY Verified 04/05/20 10:02 <ALY Flores Last Filed: 05/16/21 02:35> Review of Systems Review of Systems Constitutional : No Weight loss, No Fever, No Chills, No Fatigue, No Malaise ENT/Mouth : No sore throat, No Rhinorrhea Eyes: No Eye Pain, No Swelling, No Redness Cardiovascular : No Chest Pain, No SOB, No Dyspnea on Exertion, No Orthopnea, No Edema, No Palpitations Respiratory : No Cough, No Sputum, No Wheezing Gastrointestinal : No Nausea, No Vomiting, + Diarrhea, No Constipation, + abdominal Pain, No Hematochezia, No Melena Genitourinary : No Dysuria, No Urinary Frequency, No Hematuria, Musculoskeletal : No joint pain, No Myalgias, No Joint Swelling Skin : No Skin Lesions, No rash Neuro : No Weakness, No Numbness, No Dizziness, No Headache Psych : No Anxiety/Panic, No Depression All other systems reviewed and are negative <ALY Flores - Last Filed: 05/16/21 02:35> Yes all other systems are reviewed and are negative <ALY Flores - Last Filed: 05/16/21 02:35> [facility] Past Medical History Attestation statement: The following information was validated with the patient. <ALY Flores - Last Filed: 05/16/21 02:35> Source: old records reviewed and nursing notes reviewed <ALY Flores - Last Filed: 05/16/21 02:35> Medical History: Medical History Diabetes GERD (gastroesophageal reflux disease) Gout Hypertension Hypothyroid <ALY Flores - Last Filed: 05/16/21 02:35> Surgical History: Surgical History History of bilateral knee replacement <ALY Flores - Last Filed: 05/16/21 02:35> Social History Social History: Social History Alcohol intake: never Advance Directives: No Advance Directives Information Provided: No <ALY Flores - Last Filed: 05/16/21 02:35> Physical Exam ED Vital Signs: Vital Signs - 24 hr 05/15/21 23:54 05/16/21 00:13 05/16/21 01:02 Temperature 98.5 F Pulse Rate 79 69 Respiratory Rate 16 22 H 16 Blood Pressure 113/61 122/57 L Pulse Oximetry 95 95 05/16/21 02:17 Temperature Pulse Rate 82 Respiratory Rate 16 Blood Pressure 115/51 L Pulse Oximetry 94 BMI result Body Mass Index 34.9 VSS <ALY Flores - Last Filed: 05/16/21 02:35> Vital Signs - 24 hr 05/15/21 23:54 05/16/21 00:13 05/16/21 01:02 Temperature 98.5 F Pulse Rate 79 69 Respiratory Rate 16 22 H 16 Blood Pressure 113/61 122/57 L Pulse Oximetry 95 95 05/16/21 02:17 Temperature Pulse Rate 82 Respiratory Rate 16 Blood Pressure 115/51 L Pulse Oximetry 94 BMI result Body Mass Index 34.9 <Mandi Ortez MD - Last Filed: 05/16/21 03:43> Appearance: Alert.? Oriented X3.? No acute distress.? Head: Normocephalic, atraumatic, no step-offs or deformities Eyes: Pupils equal, round and reactive to light.? ENT: Pharynx normal.? Neck: Normal inspection.? Neck supple.? CVS: Normal heart rate and rhythm.? Pulses normal.? Respiratory: No respiratory distress.? Breath sounds normal.? Abdomen: Soft and + diffusely tender.?distended abdomen Skin: Skin warm and dry.? Normal skin color.? Normal skin turgor.? Extremities: No lower extremity edema.? No calf ttp. 5/5 strength to bilateral upper and lower extremities Back: No midline tenderness, no C-spine tenderness, full range of motion, no CVA tenderness bilaterally Neuro: Oriented X 3.? No motor deficit.? No sensory deficit. CN 2-12 intact <ALY Flores - Last Filed: 05/16/21 02:35> Course Reevaluation(s) Reevaluation #1: Patient noted to have a leukocytosis likely secondary to diarrhea . Patient is noted to have an SORAYA. Will hydrate with fluids. Stool leukocytes negative. Giardia pending. C diff negative. Trop negative. EKG nonischemic. <ALY Flores - Last Filed: 05/16/21 02:35> Time: 02:18 <ALY Flores - Last Filed: 05/16/21 02:35> Reevaluation #2: Patients pain well controlled after 4 mg of morphine. Will do PO challange. <ALY Flores - Last Filed: 05/16/21 02:35> Time: 02:20 <ALY Flores - Last Filed: 05/16/21 02:35> Reevaluation #3: Tolerating p.o.. Reports improvement of pain. Upon re-evaluation patient 's abdomen soft nontender slightly distended. Nonpainful. At this time patient will be discharged home this is likely viral gastroenteritis. Advised to return with new or worsening symptoms. Comfortable with discharge home. <ALY Flores - Last Filed: 05/16/21 02:35> Additional Reevaluation(s): 0340: I re-evaluated the patient although she is up for discharge, she continues to have significant upper abdominal discomfort and there is no evidence to suggest pancreatitis, gastritis and patient is status post cholecystectomy. On review of all investigations there is no obstruction and on reviewing the CT scan is most notable that patient's stomach is quite distended and full raising the possibility of gastro paresis. Patient has completed all IV fluid resuscitation and will repeat the BMP and obtain a COVID-19 swab. In addition, patient will be given Reglan as well as Benadryl and I discussed this case with the inpatient hospitalist who accepts admission. <Mandi Ortez MD - Last Filed: 05/16/21 03:43> MDM - Abdominal Pain MDM Narrative Medical decision making narrative: 0000 75 yo f past medical history hypothyroid, hypertension, GERD, diabetes presenting to the emergency department with diffuse abdominal pain, diarrhea x1 week. Denies recent antibiotic use. Physical examination significant for diffusely tender abdomen. Normoactive bowel sounds. Regular rate and rhythm. Lungs clear. Neuro nonfocal. Plan at this time is to obtain basic labs, stool studies, fluids, UA. <ALY Flores - Last Filed: 05/16/21 02:35> Medical Records Attestation: I reviewed the patient's medical records. <ALY Flores - Last Filed: 05/16/21 02:35> Lab Data Attestation: I reviewed the patient's lab results. <ALY Flores - Last Filed: 05/16/21 02:35> Result diagrams: : 05/16/21 00:11 05/16/21 00:11 <ALY Flores - Last Filed: 05/16/21 02:35> Labs: Lab Results 05/16/21 05/16/21 05/16/21 Range/Units 00:11 00:11 00:11 WBC 18.3 H (4.8-10.8) X10*3/uL RBC 4.40 (4.20-5.50) X10*6/uL Hgb 12.9 (12.0-16.0) g/dl Hct 40.0 (37.0-47.0) % MCV 90.9 (80.0-98.0) fL MCH 29.3 (27.0-33.0) pg MCHC 32.3 (31.0-35.0) g/dl RDW 13.9 (11.0-16.0) % Plt Count 449 H (160-400) X10*3/uL MPV 10.1 (9.4-12.3) fL Immature Gran % (Auto) 0.6 H (0.0-0.4) % Neut % (Auto) 80.7 H (45-73) % Lymph % (Auto) 11.2 L (20-40) % [place] % (Auto) 5.9 (2-11) % Eos % (Auto) 1.4 (0-4) % Baso % (Auto) 0.2 (0-2) % Lymph # (Auto) 2.1 (1.2-4.9) X10*3/uL [place] # (Auto) 1.1 (0.1-1.2) X10*3/uL Eos # (Auto) 0.3 (0.0-0.4) X10*3/uL Baso # (Auto) 0.0 (0.0-0.2) X10*3/uL Abs Immat Gran (auto) 0.11 H (0.00-0.03) X10*3/uL Absolute Neuts (auto) 14.8 H (2.0-8.3) x10*3/uL Absolute Nucleated RBC 0.000 (0.0-0.012) X10*3/uL Nucleated RBC % (auto) 0.0 (0.0-0.2) /100WBC Sodium 139 (135-145) mmol/L Potassium 4.3 (3.3-5.1) mmol/L Chloride 104 (96-108) mmol/L Carbon Dioxide 23 (22-29) mmol/L Anion Gap 16 (12-20) BUN 29 H (9-16) mg/dL Creatinine 1.58 H (0.5-1.4) mg/dL Estim Creat Clear Calc 30.2 Estimated GFR 32 POC Glucose (60-115) mg/dL Random Glucose 250 H (60-115) mg/dL Calcium 9.8 (8.4-10.2) mg/dL Magnesium 1.6 (1.6-2.6) mg/dL Total Bilirubin 0.4 (0.0-1.0) mg/dL AST 24 (5-31) U/L ALT 28 (0-31) U/L Alkaline Phosphatase 92 (39-117) U/L Troponin I High Sens < 3.5 (<3.5-17.0) ng/L Total Protein 7.7 (6.5-8.0) g/dL Albumin 4.3 (3.5-5.0) g/dL Lipase 72 (8-78) U/L Stool Leukocytes, Qual (NEGATIVE) C. difficile Tox B Gene (Negative) 05/16/21 05/16/21 05/16/21 Range/Units 00:23 00:23 02:15 WBC (4.8-10.8) X10*3/uL RBC (4.20-5.50) X10*6/uL Hgb (12.0-16.0) g/dl Hct (37.0-47.0) % MCV (80.0-98.0) fL MCH (27.0-33.0) pg MCHC (31.0-35.0) g/dl RDW (11.0-16.0) % Plt Count (160-400) X10*3/uL MPV (9.4-12.3) fL Immature Gran % (Auto) (0.0-0.4) % Neut % (Auto) (45-73) % Lymph % (Auto) (20-40) % [place] % (Auto) (2-11) % Eos % (Auto) (0-4) % Baso % (Auto) (0-2) % Lymph # (Auto) (1.2-4.9) X10*3/uL [place] # (Auto) (0.1-1.2) X10*3/uL Eos # (Auto) (0.0-0.4) X10*3/uL Baso # (Auto) (0.0-0.2) X10*3/uL Abs Immat Gran (auto) (0.00-0.03) X10*3/uL Absolute Neuts (auto) (2.0-8.3) x10*3/uL Absolute Nucleated RBC (0.0-0.012) X10*3/uL Nucleated RBC % (auto) (0.0-0.2) /100WBC Sodium (135-145) mmol/L Potassium (3.3-5.1) mmol/L Chloride (96-108) mmol/L Carbon Dioxide (22-29) mmol/L Anion Gap (12-20) BUN (9-16) mg/dL Creatinine (0.5-1.4) mg/dL Estim Creat Clear Calc Estimated GFR POC Glucose 265 H (60-115) mg/dL Random Glucose (60-115) mg/dL Calcium (8.4-10.2) mg/dL Magnesium (1.6-2.6) mg/dL Total Bilirubin (0.0-1.0) mg/dL AST (5-31) U/L ALT (0-31) U/L Alkaline Phosphatase (39-117) U/L Troponin I High Sens (<3.5-17.0) ng/L Total Protein (6.5-8.0) g/dL Albumin (3.5-5.0) g/dL Lipase (8-78) U/L Stool Leukocytes, Qual NEGATIVE (NEGATIVE) C. difficile Tox B Gene NEGATIVE (Negative) <ALY Flores - Last Filed: 05/16/21 02:35> Lab Results 05/16/21 05/16/21 05/16/21 Range/Units 00:11 00:11 00:11 WBC 18.3 H (4.8-10.8) X10*3/uL RBC 4.40 (4.20-5.50) X10*6/uL Hgb 12.9 (12.0-16.0) g/dl Hct 40.0 (37.0-47.0) % MCV 90.9 (80.0-98.0) fL MCH 29.3 (27.0-33.0) pg MCHC 32.3 (31.0-35.0) g/dl RDW 13.9 (11.0-16.0) % Plt Count 449 H (160-400) X10*3/uL MPV 10.1 (9.4-12.3) fL Immature Gran % (Auto) 0.6 H (0.0-0.4) % Neut % (Auto) 80.7 H (45-73) % Lymph % (Auto) 11.2 L (20-40) % [place] % (Auto) 5.9 (2-11) % Eos % (Auto) 1.4 (0-4) % Baso % (Auto) 0.2 (0-2) % Lymph # (Auto) 2.1 (1.2-4.9) X10*3/uL [place] # (Auto) 1.1 (0.1-1.2) X10*3/uL Eos # (Auto) 0.3 (0.0-0.4) X10*3/uL Baso # (Auto) 0.0 (0.0-0.2) X10*3/uL Abs Immat Gran (auto) 0.11 H (0.00-0.03) X10*3/uL Absolute Neuts (auto) 14.8 H (2.0-8.3) x10*3/uL Absolute Nucleated RBC 0.000 (0.0-0.012) X10*3/uL Nucleated RBC % (auto) 0.0 (0.0-0.2) /100WBC Sodium 139 (135-145) mmol/L Potassium 4.3 (3.3-5.1) mmol/L Chloride 104 (96-108) mmol/L Carbon Dioxide 23 (22-29) mmol/L Anion Gap 16 (12-20) BUN 29 H (9-16) mg/dL Creatinine 1.58 H (0.5-1.4) mg/dL Estim Creat Clear Calc 30.2 Estimated GFR 32 POC Glucose (60-115) mg/dL Random Glucose 250 H (60-115) mg/dL Calcium 9.8 (8.4-10.2) mg/dL Magnesium 1.6 (1.6-2.6) mg/dL Total Bilirubin 0.4 (0.0-1.0) mg/dL AST 24 (5-31) U/L ALT 28 (0-31) U/L Alkaline Phosphatase 92 (39-117) U/L Troponin I High Sens < 3.5 (<3.5-17.0) ng/L Total Protein 7.7 (6.5-8.0) g/dL Albumin 4.3 (3.5-5.0) g/dL Lipase 72 (8-78) U/L Stool Leukocytes, Qual (NEGATIVE) C. difficile Tox B Gene (Negative) 05/16/21 05/16/21 05/16/21 Range/Units 00:23 00:23 02:15 WBC (4.8-10.8) X10*3/uL RBC (4.20-5.50) X10*6/uL Hgb (12.0-16.0) g/dl Hct (37.0-47.0) % MCV (80.0-98.0) fL MCH (27.0-33.0) pg MCHC (31.0-35.0) g/dl RDW (11.0-16.0) % Plt Count (160-400) X10*3/uL MPV (9.4-12.3) fL Immature Gran % (Auto) (0.0-0.4) % Neut % (Auto) (45-73) % Lymph % (Auto) (20-40) % [place] % (Auto) (2-11) % Eos % (Auto) (0-4) % Baso % (Auto) (0-2) % Lymph # (Auto) (1.2-4.9) X10*3/uL [place] # (Auto) (0.1-1.2) X10*3/uL Eos # (Auto) (0.0-0.4) X10*3/uL Baso # (Auto) (0.0-0.2) X10*3/uL Abs Immat Gran (auto) (0.00-0.03) X10*3/uL Absolute Neuts (auto) (2.0-8.3) x10*3/uL Absolute Nucleated RBC (0.0-0.012) X10*3/uL Nucleated RBC % (auto) (0.0-0.2) /100WBC Sodium (135-145) mmol/L Potassium (3.3-5.1) mmol/L Chloride (96-108) mmol/L Carbon Dioxide (22-29) mmol/L Anion Gap (12-20) BUN (9-16) mg/dL Creatinine (0.5-1.4) mg/dL Estim Creat Clear Calc Estimated GFR POC Glucose 265 H (60-115) mg/dL Random Glucose (60-115) mg/dL Calcium (8.4-10.2) mg/dL Magnesium (1.6-2.6) mg/dL Total Bilirubin (0.0-1.0) mg/dL AST (5-31) U/L ALT (0-31) U/L Alkaline Phosphatase (39-117) U/L Troponin I High Sens (<3.5-17.0) ng/L Total Protein (6.5-8.0) g/dL Albumin (3.5-5.0) g/dL Lipase (8-78) U/L Stool Leukocytes, Qual NEGATIVE (NEGATIVE) C. difficile Tox B Gene NEGATIVE (Negative) <Mandi Ortez MD - Last Filed: 05/16/21 03:43> ECG Data Attestation: I personally reviewed and interpreted this ECG as follows: <ALY Flores - Last Filed: 05/16/21 02:35> ECG interpretation date: 05/16/21 <ALY Flores - Last Filed: 05/16/21 02:35> ECG interpretation time: 01:44 <ALY Flores - Last Filed: 05/16/21 02:35> Prior ECG tracings: available for review <ALY Flores - Last Filed: 05/16/21 02:35> Interpretation: Rate of 67, WI normal, QRS normal, QT QTC normal. EKG shows normal sinus rhythm. No ST elevations or inversions consistent with ischemia. No significant changes when compared to EKG from August 2020 <ALY Flores - Last Filed: 05/16/21 02:35> Critical Care Time Critical Care Time Critical Care Time: No <ALY Flores Last Filed: 05/16/21 02:35> Discharge Plan Discharge Clinical Impression: Diarrhea, Diabetes, SORAYA (acute kidney injury), Intractable abdominal pain <ALY Flores - Last Filed: 05/16/21 02:35> Patient Disposition: Admitted As Inpatient <ALY Flores - Last Filed: 05/16/21 02:35> Instructions: Acute Diarrhea (ED), Abdominal Pain (ED), Nutrition Tips for Relief of Diarrhea (ED) <ALY Flores - Last Filed: 05/16/21 02:35> Prescriptions: No Action acetaminophen [Tylenol Extra Strength] 500 mg tablet 1,000 mg PO Q6H PRN (Reason: pain) Qty: 10 0RF <ALY Flores - Last Filed: 05/16/21 02:35> Referrals: PhysicianElio [Primary Care Provider] - 2 days Brandon Munoz [Physician] - 1 week <ALY Flores Last Filed: 05/16/21 02:35>
[2021-05-16] VITALS (14 sets, daily range): BP systolic 103–125; BP diastolic 51–80; PULSE 54–88; RESP 12–22; TEMP 36–36.9; O2SAT 87–99
[2021-05-16] MEDS: 0.9 % Sodium Chloride 1,000 ML 999 ML IV ×3 (00:10→02:43)
[2021-05-16 00:17] LABS: MANUAL DIFF FLAG NO
[2021-05-16 00:18] LABS: Basophils Percent Auto 0.2 % (0-2); Eosinophils Absolute Auto 0.3 X10*3/uL (0.0-0.4); Eosinophils Percent Auto 1.4 % (0-4); Hemoglobin 12.9 g/dl (12.0-16.0); Imm Gran Abs Auto 0.11 X10*3/uL (0.00-0.03); Imm Gran Pct Auto 0.6 % (0.0-0.4); Lymphocytes Absolute Auto 2.1 X10*3/uL (1.2-4.9); Lymphocytes Percent Auto 11.2 % (20-40); Mean Corpuscular HGB Conc 32.3 g/dl (31.0-35.0); Mean Corpuscular Hemoglobin 29.3 pg (27.0-33.0); Mean Corpuscular Volume 90.9 fL (80.0-98.0); Mean Platelet Volume 10.1 fL (9.4-12.3); Monocytes Absolute Auto 1.1 X10*3/uL (0.1-1.2); Monocytes Percent Auto 5.9 % (2-11); Neutrophils Absolute Auto 14.8 x10*3/uL (2.0-8.3); Neutrophils Percent Auto 80.7 % (45-73); Platelet Count 449 X10*3/uL (160-400); Red Cell Distribution Width 13.9 % (11.0-16.0); White Blood Count 18.3 X10*3/uL (4.8-10.8)
[2021-05-16 00:34] LABS: Alanine Aminotransferase 28 U/L (0-31); Albumin Level 4.3 g/dL (3.5-5.0); Alkaline Phosphatase 92 U/L (39-117); Anion Gap 16 (12-20); Aspartate Amino Transferase 24 U/L (5-31); Bilirubin Total 0.4 mg/dL (0.0-1.0); Blood Urea Nitrogen 29 mg/dL (9-16); Calcium 9.8 mg/dL (8.4-10.2); Carbon Dioxide 23 mmol/L (22-29); Chloride 104 mmol/L (96-108); Creatinine Clr Calc Pharmacy 30.2; Estimated Glomerular Filt Rate 32; Glucose Random 250 mg/dL (60-115); Lipase 72 U/L (8-78); Magnesium 1.6 mg/dL (1.6-2.6); Potassium 4.3 mmol/L (3.3-5.1); Sodium 139 mmol/L (135-145); Total Protein 7.7 g/dL (6.5-8.0)
[2021-05-16 00:57] LABS: Leukocytes Stool Qualitative NEGATIVE (NEGATIVE)
[2021-05-16] MEDS: PHENobarb/Hyoscy/Atropine/Scop 10 ML ELIXIR PO (01:01)
[2021-05-16] MEDS: Morphine Sulfate 2 MG/ML CARTRIDGE IVPUSH (01:02)
[2021-05-16] MEDS: Magnesium Hydrox/Alum Hydrox 30 ML ORAL.SUSP PO (01:02)
[2021-05-16] MEDS: ondansetron HCL 4 MG/2 ML VIAL IVPUSH (01:02)
--- NOTE | 2021-05-16 01:02 | PC.NURSE ---
Helped pt to in room commode. Pt had diarrhea. Collected stool sample. Pt complaining of nausea, RN Jose aware. Pt back in bed with warm blanket. Continue to monitor.
[2021-05-16 01:28] LABS: CDiff Gene PCR NEGATIVE (Negative)
--- NOTE | 2021-05-16 01:33 | ECG_ITS ---
Test Reason : abd pain Blood Pressure : / mmHG Vent. 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
[2021-05-16 02:03] LABS: Troponin-I High Sensitivity < 3.5 ng/L (<3.5-17.0)
--- NOTE | 2021-05-16 02:18 | PC.NURSE ---
POC 265 at this time.
[2021-05-16 02:20] LABS: Glucose, Whole Blood 265 mg/dL (60-115)
[2021-05-16] MEDS: Metoclopramide HCl 10 MG/2 ML VIAL IVPUSH (03:55)
[2021-05-16] MEDS: diphenhydrAMINE HCL 50 MG/ML VIAL 25 MG IVPUSH (03:55)
[2021-05-16 04:05] LABS: COVID-19 Test Negative (Negative)
[2021-05-16 04:13] LABS: Anion Gap 13 (12-20); Blood Urea Nitrogen 27 mg/dL (9-16); Calcium 8.3 mg/dL (8.4-10.2); Carbon Dioxide 22 mmol/L (22-29); Chloride 109 mmol/L (96-108); Creatinine Clr Calc Pharmacy 32.9; Estimated Glomerular Filt Rate 35; Glucose Random 302 mg/dL (60-115); Potassium 4.8 mmol/L (3.3-5.1); Sodium 139 mmol/L (135-145)
[2021-05-16] MEDS: HYDROmorphone HCl 0.5 MG/0.5 ML SYRINGE 0.1 MG IVPUSH (04:30)
--- NOTE | 2021-05-16 05:50 | P.HPHOSP_ITS ---
History of Present Illness Date of Service: 05/16/21 Chief Complaint: Nausea/vomiting 75F past medical history anemia, diabetes, hypothyroidism, gout presented to the hospital with complaint of nausea/abdominal pain/diarrhea started 21:00 last night. Denies any symptoms the day before. Reports she had multiple episodes of loose stools; Patient with the past 1 week she discomfort associated diarrhea. Denies any blood in the stool. Mentions that patient has not been able to keep anything down. Denies any concerns for food poisoning. Reports her abdominal pain is crampy in nature present in the mid abdomen; no change with bowel movements. Denies any chest pain or palpitations. Denies any fever chills cough. Denies any sick contacts. Review of all other systems is negative except mentioned above ER course: Per ER team patient noted to have diffuse abdominal tenderness; on labs noted to have leukocytosis and SORAYA; CT abdomen pelvis showed no evidence of acute intra- abdominal pathology; also mentioned possible lingular atelectasis versus consolidation. Patient had no respiratory symptoms. Antibiotics were not considered. Patient was given IV fluids and symptomatic management, with no significant improvement, admitted to the hospital for further management. [facility] Medical History Diabetes GERD (gastroesophageal reflux disease) Gout Hypertension Hypothyroid Surgical History History of bilateral knee replacement Social History Alcohol intake: never Advance Directives: No Advance Directives Information Provided: No Meds Allergies Allergy/AdvReac Type Severity Reaction Status Date / Time meperidine [From DEMEROL] Allergy Unknown UNKNOWN Verified 04/05/20 10:02 morphine [MORPHINE] Allergy Unknown SLEEPY Verified 04/05/20 10:02 Active Medications: Current Medications Acetaminophen (Acetaminophen 325 Mg Tablet) 650 mg PO Q6H PRN PRN Reason: Pain, Mild (Pain Scale 1-3) Dextrose (Dextrose 50 % 25 Gm/50 Ml Vial) 25 gm IVPUSH Q15M PRN; Protocol PRN Reason: per Hypoglycemia Standing Ord. Glucose (Glucose Gel 15 Gm Gel..Gram.) 15 gm PO Q15M PRN; Protocol PRN Reason: per Hypoglycemia Standing Ord. Heparin Sodium (Porcine) (Heparin Sodium,Porcine 5,000 Unit/Ml Vial) 5,000 unit SUBCUT Q8H [facility] Hydromorphone HCl (Hydromorphone Hcl 1 Mg/Ml Syringe) 0.5 mg IVPUSH Q4H PRN; Protocol PRN Reason: Pain, Severe (Pain Scale 7-10) Sodium Chloride (Ns) 1,000 mls @ 50 mls/hr IVCONT .Q20H [facility] Insulin Human Lispro (Insulin Lispro 100 Unit/Ml 3 Ml Vial) 0 unit SUBCUT QIDACHS [facility]; Protocol Melatonin (Melatonin 3 Mg Tablet) 6 mg PO BEDTIME PRN PRN Reason: Insomnia Ondansetron HCl (Ondansetron Hcl 4 Mg/2 Ml Vial) 4 mg IVPUSH Q8H PRN PRN Reason: Nausea and Vomiting Senna (Sennosides 8.6 Mg Tablet) 17.2 mg PO BEDTIME PRN PRN Reason: Constipation Sodium Chloride (0.9 % Sodium Chloride Flush 3 Ml Syringe) 3 ml IVFLUSH QSHIFT [facility] Home Medications Medication Instructions Recorded Confirmed Last Taken Type allopurinol 100 mg tablet 200 mg PO DAILY 05/16/21 05/16/21 Unknown History atorvastatin 40 mg tablet 40 mg PO DAILY 05/16/21 05/16/21 Unknown History glipizide 5 mg tablet 5 mg PO BID 05/16/21 05/16/21 Unknown History levothyroxine 88 mcg tablet 88 mcg PO DAILY 05/16/21 05/16/21 Unknown History lisinopril 20 1 tab PO DAILY 05/16/21 05/16/21 Unknown History mg-hydrochlorothiazide 25 mg tablet lorazepam 0.5 mg tablet 0.5 mg PO BEDTIME PRN 05/16/21 05/16/21 Unknown History omeprazole 40 mg capsule,delayed 40 mg PO DAILY 05/16/21 05/16/21 Unknown Hi story release Physical Exam Vital Signs and Narrative: Vital Signs: Last Vital Signs Temp 98.5 F 05/15/21 23:54 Pulse 88 05/16/21 04:20 Resp 16 05/16/21 04:30 BP 115/53 L 05/16/21 04:20 Pulse Ox 96 05/16/21 04:20 BMI result Body Mass Index 34.9 Gen: Appears be in no acute distress HEENT: NCAT, Moist mucosa. Pulmonary: Vesicular breath sounds, fair air entry CVS: Normal S1-S2 Abdomen: BS+, Soft, tender in the epigastrium; no guarding no rigidity Extremities: Warm well perfused Neuro: Alert and awake. Results Labs CBC and Chem 7: 05/16/21 00:11 05/16/21 03:46 Labs: Laboratory Results - last 24 hr 05/16/21 05/16/21 05/16/21 00:11 00:11 00:23 MCV 90.9 MCH 29.3 MCHC 32.3 RDW 13.9 Plt Count 449 H MPV 10.1 Immature Gran % (Auto) 0.6 H Neut % (Auto) 80.7 H Lymph % (Auto) 11.2 L [place] % (Auto) 5.9 Eos % (Auto) 1.4 Baso % (Auto) 0.2 Lymph # (Auto) 2.1 [place] # (Auto) 1.1 Eos # (Auto) 0.3 Baso # (Auto) 0.0 Abs Immat Gran (auto) 0.11 H Absolute Neuts (auto) 14.8 H Absolute Nucleated RBC 0.000 Nucleated RBC % (auto) 0.0 Anion Gap 16 Estim Creat Clear Calc 30.2 Estimated GFR 32 POC Glucose Random Glucose 250 H Calcium 9.8 Magnesium 1.6 Total Bilirubin 0.4 AST 24 ALT 28 Alkaline Phosphatase 92 Total Protein 7.7 Albumin 4.3 Lipase 72 Stool Leukocytes, Qual NEGATIVE C. difficile Tox B Gene COVID-19 ([place]) COVID-[facility] Com 05/16/21 05/16/21 05/16/21 00:23 02:15 03:46 MCV MCH MCHC RDW Plt Count MPV Immature Gran % (Auto) Neut % (Auto) Lymph % (Auto) [place] % (Auto) Eos % (Auto) Baso % (Auto) Lymph # (Auto) [place] # (Auto) Eos # (Auto) Baso # (Auto) Abs Immat Gran (auto) Absolute Neuts (auto) Absolute Nucleated RBC Nucleated RBC % (auto) Anion Gap 13 Estim Creat Clear Calc 32.9 Estimated GFR 35 POC Glucose 265 H Random Glucose 302 H Calcium 8.3 L D Magnesium Total Bilirubin AST ALT Alkaline Phosphatase Total Protein Albumin Lipase Stool Leukocytes, Qual C. difficile Tox B Gene NEGATIVE COVID-19 ([place]) COVID-[facility] Com 05/16/21 03:46 MCV MCH MCHC RDW Plt Count MPV Immature Gran % (Auto) Neut % (Auto) Lymph % (Auto) [place] % (Auto) Eos % (Auto) Baso % (Auto) Lymph # (Auto) [place] # (Auto) Eos # (Auto) Baso # (Auto) Abs Immat Gran (auto) Absolute Neuts (auto) Absolute Nucleated RBC Nucleated RBC % (auto) Anion Gap Estim Creat Clear Calc Estimated GFR POC Glucose Random Glucose Calcium Magnesium Total Bilirubin AST ALT Alkaline Phosphatase Total Protein Albumin Lipase Stool Leukocytes, Qual C. difficile Tox B Gene COVID-19 ([facility]) Negative COVID-19 Clin Com See Note Imaging Radiologist's Impressions: Impressions Abdomen/Pelvis CT 05/16/21 00:55 IMPRESSION: 1. No acute findings identified in the abdomen/pelvis. 2. Somewhat nodular 9 mm focus in the lingula. Small region of atelectasis versus consolidation is also noted in the anterior lingula. This is of uncertain chronicity, and follow-up chest CT in 3 months is recommended. Fleischner guidelines were followed. Assessment and Plan (1) Diarrhea: Status: Acute (2) SORAYA (acute kidney injury): Status: Acute Plan 75F past medical history anemia, diabetes, hypothyroidism, gout presented to the hospital with complaint of nausea/vomiting/abdominal discomfort/diarrhea. CT abdomen showed no acute findings. Patient failed p.o. challenge in the ER. Admitted for further management. Nausea/Abd pain/diarrhea: Likely gastroenteritis. CT abdomen report negative. Supportive care. IV fluids. Pain control. Stool studies were ordered. Mild SORAYA: Improving with IV fluids. Likely prerenal. Avoid nephrotoxins Leukocytosis: Likely reactive. Will monitor History of diabetes: Hold home glipizide. Insulin sliding scale. History of hypothyroidism: Continue home levothyroxine History of hyperlipidemia: Continue home statin History of gout: Continue home allopurinol History of hypertension: Patient's blood pressure currently on the normal side. Hold home lisinopril/hydrochlorothiazide. DVT prophylaxis: Subcu heparin Code status: Full code Quality Stroke Does the patient have a stroke diagnosis?: No VTE Prior VTE?: No VTE Risk Level:: Medical - moderate - high VTE Device Contraindication: N/A - Device Ordered VTE Drug Contraindication: Treatment Not Indicated
[2021-05-16] MEDS: 0.9 % Sodium Chloride 1,000 ML 50 ML IVCONT ×2 (06:32→18:21)
[2021-05-16 07:15] LABS: Glucose, Whole Blood 245 mg/dL (60-115)
--- NOTE | 2021-05-16 07:20 | PC.NURSE ---
Pt received from hourly shift manager: Pt AOX3 and currently offers no complaints. Pt intermittently sleeping. Heart sounds normal and lungs clear. Pt abd soft and generally tenderness. Pt remains NPO as per N/V/D and abd pain. Will hold insulin. RN will continue to monitor.
[2021-05-16] MEDS: Atorvastatin Calcium 40 MG TABLET PO (08:00)
[2021-05-16] MEDS: Levothyroxine Sodium 88 MCG TABLET PO (08:00)
[2021-05-16] MEDS: Omeprazole 40 MG CAPSULE.DR PO (08:00)
[2021-05-16] MEDS: Heparin Sodium,Porcine 5,000 UNIT/ML VIAL 5000 UNIT SUBCUT ×3 (08:00→23:38)
[2021-05-16] MEDS: allopurinoL 100 MG TABLET 200 MG PO (08:00)
--- NOTE | 2021-05-16 08:03 | PC.NURSE ---
Pt now more awake, s/p given scheduled medications. Pt states she is still having intermittent loose stools with generalized abd pain. Pt able to tolerate water with medications with no N/V.
--- NOTE | 2021-05-16 09:58 | PC.NURSE ---
MD Cavanaugh at [facility] and communication order received for change in diet order.
--- NOTE | 2021-05-16 10:02 | PM.EVENT ---
Event Note Date of Service: 05/16/21 Event Note: Seen and examined personally, she's doing better with no n/v, abd exam bening, she would like to eat, start regular diet. Likely viral gastroenteritis.
--- NOTE | 2021-05-16 10:14 | MHC.CM.PN ---
Addendum entered by Fany Oden 05/16/21 10:26: No PCP info available at this time. Original Note: Attempted to meet with patient in regards to discharge planning. Patient currently sleeping. No family present. Attempted to reach patient's , Cleve via telephone at [phone]. Phone is busy. Case management assessment completed using medical record. Obs notice left at patient's bedside. No HCP on file. No Covid vaccine info available at this time. Continue to monitor for d/c needs.
[2021-05-16 13:07] LABS: Glucose, Whole Blood 151 mg/dL (60-115)
[2021-05-16 17:54] LABS: Glucose, Whole Blood 120 mg/dL (60-115)
[2021-05-16 18:24] LABS: Glucose, Whole Blood 107 mg/dL (60-115)
[2021-05-16 20:13] LABS: Glucose, Whole Blood 106 mg/dL (60-115)
[2021-05-17 04:00] VITALS: BP 101/57; PULSE 62; RESP 14; TEMP 36.6; O2SAT 95
[2021-05-17] MEDS: Omeprazole 40 MG CAPSULE.DR PO (05:25)
[2021-05-17] MEDS: Levothyroxine Sodium 88 MCG TABLET PO (05:26)
[2021-05-17 05:53] LABS: MANUAL DIFF FLAG NO
[2021-05-17 05:56] LABS: Basophils Percent Auto 0.3 % (0-2); Eosinophils Absolute Auto 0.1 X10*3/uL (0.0-0.4); Eosinophils Percent Auto 1.4 % (0-4); Hematocrit 32.4 % (37.0-47.0); Hemoglobin 10.1 g/dl (12.0-16.0); Imm Gran Abs Auto 0.04 X10*3/uL (0.00-0.03); Imm Gran Pct Auto 0.4 % (0.0-0.4); Lymphocytes Absolute Auto 3.2 X10*3/uL (1.2-4.9); Lymphocytes Percent Auto 35.9 % (20-40); Mean Corpuscular HGB Conc 31.2 g/dl (31.0-35.0); Mean Corpuscular Hemoglobin 29.4 pg (27.0-33.0); Mean Corpuscular Volume 94.5 fL (80.0-98.0); Mean Platelet Volume 10.1 fL (9.4-12.3); Monocytes Absolute Auto 0.9 X10*3/uL (0.1-1.2); Monocytes Percent Auto 9.5 % (2-11); Neutrophils Absolute Auto 4.7 x10*3/uL (2.0-8.3); Neutrophils Percent Auto 52.5 % (45-73); Platelet Count 328 X10*3/uL (160-400); Red Blood Count 3.43 X10*6/uL (4.20-5.50); Red Cell Distribution Width 14.4 % (11.0-16.0)
[2021-05-17 06:15] LABS: Anion Gap 11 (12-20); Blood Urea Nitrogen 21 mg/dL (9-16); Calcium 8.4 mg/dL (8.4-10.2); Carbon Dioxide 22 mmol/L (22-29); Chloride 110 mmol/L (96-108); Estimated Glomerular Filt Rate 40; Glucose Random 136 mg/dL (60-115); Potassium 4.3 mmol/L (3.3-5.1); Sodium 139 mmol/L (135-145)
[2021-05-17 07:29] VITALS: BP 103/72; PULSE 97; RESP 20; TEMP 36.4; O2SAT 98
--- NOTE | 2021-05-17 07:33 | PHA.MEDREC ---
Pharmacy Consult ? Medication Reconciliation RN has completed the medication reconciliation, pharmacy reviewed. .
[2021-05-17 07:55] LABS: Glucose, Whole Blood 127 mg/dL (60-115)
[2021-05-17] MEDS: Heparin Sodium,Porcine 5,000 UNIT/ML VIAL 5000 UNIT SUBCUT (07:55)
[2021-05-17] MEDS: Atorvastatin Calcium 40 MG TABLET PO (07:55)
[2021-05-17] MEDS: allopurinoL 100 MG TABLET 200 MG PO (07:55)
--- NOTE | 2021-05-17 08:30 | PM.DS ---
DS: Providers Provider Date of Service: 05/17/21 Date of admission: 05/16/21 05:47 Primary care physician: Unknown Physician DS: Diagnosis Discharge Diagnosis (1) Diarrhea: Status: Acute (2) SORAYA (acute kidney injury): Status: Acute DS: Summary Status at Discharge Cognitive/behavioral status at discharge: She presented with acute onset of nausea vomiting and episodes of diarrhea with no blood no fever or chill. CT scan of the abdomen and pelvis showed no acute finding. WBC 2 of markedly elevated at 18,000 thousand with no obvious source of infection. C diff level was negative. her symptoms resolved rather rapidly following hydration and is presently tolerating regular diet her WBCs which was as high as 18,000 has returned to normal. Her presentation is consistent with acute viral gastroenteritis that been self limited. she had a mild acute on chronic renal insufficiency and that this has resolved Final diagnosis 1. Acute viral gastroenteritis 2. Acute on chronic kidney insufficiency. Secondary diagnosis; 1. Diabetes 2. S CKD 3 3. Hypertension Time Spent with Patient Time attestation: Total time spent providing and/or coordinating discharge services: Discharge coordination time: Greater than 30 minutes Quality: Stroke Does the patient have a stroke diagnosis?: No Physical Exam Vital Signs: Vital Signs: Last Vital Signs Temp 97.5 F 05/17/21 07:29 Pulse 97 05/17/21 07:29 Resp 20 05/17/21 07:29 BP 103/72 05/17/21 07:29 Pulse Ox 98 05/17/21 07:29 BMI result Body Mass Index 34.9 DS: Data Data Completed and Pending Labs on day of discharge: Laboratory Results - last 24 hr 05/16/21 05/16/21 05/16/21 13:03 17:50 18:14 WBC RBC Hgb Hct MCV MCH MCHC RDW Plt Count MPV Immature Gran % (Auto) Neut % (Auto) Lymph % (Auto) [place] % (Auto) Eos % (Auto) Baso % (Auto) Lymph # (Auto) [place] # (Auto) Eos # (Auto) Baso # (Auto) Abs Immat Gran (auto) Absolute Neuts (auto) Absolute Nucleated RBC Nucleated RBC % (auto) Sodium Potassium Chloride Carbon Dioxide Anion Gap BUN Creatinine Estim Creat Clear Calc Estimated GFR POC Glucose 151 H 120 H 107 Random Glucose Calcium Stl Giardia Antigen 05/16/21 05/16/21 05/17/21 19:25 Unknown 05:37 WBC 9.0 RBC 3.43 L D Hgb 10.1 L D Hct 32.4 L MCV 94.5 MCH 29.4 MCHC 31.2 RDW 14.4 Plt Count 328 D MPV 10.1 Immature Gran % (Auto) 0.4 Neut % (Auto) 52.5 Lymph % (Auto) 35.9 [place] % (Auto) 9.5 Eos % (Auto) 1.4 Baso % (Auto) 0.3 Lymph # (Auto) 3.2 [place] # (Auto) 0.9 Eos # (Auto) 0.1 Baso # (Auto) 0.0 Abs Immat Gran (auto) 0.04 H Absolute Neuts (auto) 4.7 Absolute Nucleated RBC 0.000 Nucleated RBC % (auto) 0.0 Sodium Potassium Chloride Carbon Dioxide Anion Gap BUN Creatinine Estim Creat Clear Calc Estimated GFR POC Glucose 106 Random Glucose Calcium Stl Giardia Antigen TNP 05/17/21 05/17/21 05:37 07:52 WBC RBC Hgb Hct MCV MCH MCHC RDW Plt Count MPV Immature Gran % (Auto) Neut % (Auto) Lymph % (Auto) [place] % (Auto) Eos % (Auto) Baso % (Auto) Lymph # (Auto) [place] # (Auto) Eos # (Auto) Baso # (Auto) Abs Immat Gran (auto) Absolute Neuts (auto) Absolute Nucleated RBC Nucleated RBC % (auto) Sodium 139 Potassium 4.3 Chloride 110 H Carbon Dioxide 22 Anion Gap 11 L BUN 21 H Creatinine 1.29 Estim Creat Clear Calc 37.0 Estimated GFR 40 POC Glucose 127 H Random Glucose 136 H Calcium 8.4 Stl Giardia Antigen Discharge Plan Discharge Anticipated Discharge Date/Time: 05/17/21 08:27 Patient Disposition: Home, Self-Care Referrals: Physician,Elio Pisano [Primary Care Provider] - 2 days Brandon Munoz [Physician] - 1 week Discharge Medications: Continued atorvastatin 40 mg tablet 40 mg PO DAILY 0RF allopurinol 100 mg tablet 200 mg PO DAILY 0RF omeprazole 40 mg capsule,delayed release(DR/EC) 40 mg PO DAILY 0RF levothyroxine 88 mcg tablet 88 mcg PO DAILY 0RF lorazepam 0.5 mg tablet 0.5 mg PO BEDTIME PRN (Reason: anxiety) 0RF lisinopril-hydrochlorothiazide 20-25 mg tablet 1 tab PO DAILY 0RF glipizide 5 mg tablet 5 mg PO BID 0RF Discharge Orders: Discharge Order (Routine); Ordered 05/17/21 Ordered By: David Cavanaugh Diet: advance to usual diet and diabetic diet Activity on Discharge: As tolerated Stand Alone Forms: Patient Portal Discharge page Care Plan Goals: Full recovery from gastroenteritis Health Concerns: no new concern at this time other chronic known issues of diabetes, HTN, chronic kidney disease Plan of Treatment: drink enough fluid, follow up your doctor as needed Assessment: as above Patient Instructions: Acute Diarrhea (ED), Abdominal Pain (ED), Nutrition Tips for Relief of Diarrhea (ED)
--- NOTE | 2021-05-17 08:42 | MHC.CM.PN ---
Addendum entered by Keila Suero 05/17/21 08:43: DISCHARGED HOME NO SERVICES Original Note: NURSE CASE MANAGEMENT NOTE ELECTRONIC MEDICAL RECORD REVIEWED ALONG WITH CASE DISUCSSED WITH STAFF NURSE DISCHARGE PLAN HOME NO SERVICES TRANSPORTATION FAMILY
== END 2021-05-17 11:02 | disposition home or self-care (01) ==
LOC: HO.ED 05-16 03:43 → HO.EDOVER 05-16 05:54 → HO.S3 05-16 17:26
PROVIDERS: Physician Assistant; Student in an Organized Health Care Education/Training Program; Admitting Provider Hospitalist; Emergency Provider Emergency Medicine Emergency Medical Services; PCP Physician Assistant Medical; Visit Provider Internal Medicine
DX: R19.7 Diarrhea, unspecified (principal); N17.9 Acute kidney failure, unspecified; N18.30 Chronic kidney disease, stage 3 unspecified; E11.29 Type 2 diabetes mellitus with other diabetic kidney complication; R10.13 Epigastric pain; K57.30 Diverticulosis of large intestine without perforation or abscess without bleeding; E03.9 Hypothyroidism, unspecified; H40.059 Ocular hypertension, unspecified eye; R94.31 Abnormal electrocardiogram [ECG] [EKG]; M10.9 Gout, unspecified; F41.0 Panic disorder [episodic paroxysmal anxiety]; Z20.822 Contact with and (suspected) exposure to COVID-19; Z90.49 Acquired absence of other specified parts of digestive tract; Z96.653 Presence of artificial knee joint, bilateral; Z88.6 Allergy status to analgesic agent; Z79.84 Long term (current) use of oral hypoglycemic drugs; Z79.899 Other long term (current) drug therapy
CPT/HCPCS: 36415; 74176; 80048; 80053; 82947; 83690; 83735; 84484; 85025; 87045; 87046; 87329; 87493; 87635; 89055; 93005; 96361; 96374; 96375; 96376; 99218; 99285; J1170; J1200; J2270; J2405; J2765

== ENCOUNTER 2021-09-15 13:44 | Outpatient (REF) | payer MEDICARE, SELFPAY ==
[2021-09-15 14:32] LABS: Influenza A PCR NEGATIVE (Negative); Influenza B PCR NEGATIVE (Negative); Resp Syncy Virus RNA Qual PCR NEGATIVE (Negative); SARS COV2 PCR INHOUSE NEGATIVE (Negative)
== END 2021-09-15 13:45 | disposition home or self-care (01) ==
LOC: HO.LNP 13:44
PROVIDERS: Visit Provider Physician Assistant
DX: J06.9 Acute upper respiratory infection, unspecified (principal); Z20.822 Contact with and (suspected) exposure to COVID-19
CPT/HCPCS: 0241U

== ENCOUNTER 2021-12-29 07:10 | Day surgery (SDC) | payer MEDICARE, SELFPAY ==
--- NOTE | 2021-12-28 13:20 | P.CONAN_ITS ---
Documented by User: Romina Lyosn NP 12/28/21 13:23 HPI - Anesthesia Eval Consult details Narrative: 76yo F for Bronchoscopy and Mediastinoscopy PMF Active Problems Active Problems: All Active Problems (Updated 12/28/21 @ 12:29 by Kate Barrett RN) History of bilateral knee replacement (Acute) Hypothyroid (Acute) Hypertension (Acute) Gout (Acute) GERD (gastroesophageal reflux disease) (Acute) Diabetes (Acute) Past Medical History Medical History Anxiety Diabetes Diabetes Elevated cholesterol GERD (gastroesophageal reflux disease) Gout Hypertension Hypothyroid Surgical History Surgical History History of bilateral knee replacement History of bronchoscopy History of incisional hernia repair Hx of section Hx of cholecystectomy Hx of hand surgery Hx of hysterectomy Social History Social History Household Members: Significant Other Housing: Homeless Do you presently have visiting nurse or other home services: No Alcohol intake: never Patient Tobacco Use Status: Never used Tobacco Use of substances other than those prescribed or required for medical reasons: No Are you DNR?: No Advance Directives: No Advance Directives Information Provided: Yes service: No Current occupational status: retired Meds Allergies Allergy/AdvReac Type Severity Reaction Status Date / Time meperidine [From DEMEROL] Allergy Unknown UNKNOWN Verified 12/29/21 07:51 morphine [MORPHINE] Allergy Unknown SLEEPY Verified 12/29/21 07:51 Home Medications Medication Instructions Recorded Confirmed Last Taken Type allopurinol 100 mg tablet 200 mg PO DAILY 05/16/21 12/29/21 Unknown History atorvastatin 40 mg tablet 40 mg PO DAILY 05/16/21 12/29/21 Unknown History glipizide 5 mg tablet 5 mg PO BID 05/16/21 12/29/21 Unknown History levothyroxine 88 mcg tablet 88 mcg PO DAILY 05/16/21 12/29/21 Unknown History lisinopril 20 1 tab PO DAILY 05/16/21 12/29/21 Unknown History mg-hydrochlorothiazide 25 mg tablet lorazepam 0.5 mg tablet 0.5 mg PO BEDTIME PRN anxiety 05/16/21 12/29/21 Unknown History omeprazole 40 mg capsule,delayed 40 mg PO DAILY 05/16/21 12/29/21 Unknown History release Exam Exam Date and Time: December 28, 2021 1320 Pertinent Lab Results Pertinent Lab Results: Laboratory Tests 05/17/21 05/17/21 05:37 05:37 WBC 9.0 Hgb 10.1 L D Hct 32.4 L Plt Count 328 D Sodium 139 Potassium 4.3 Chloride 110 H Carbon Dioxide 22 BUN 21 H Creatinine 1.29 Narrative Narrative: EKG 05/2021 Vent. Rate : 067 BPM ? ? Atrial Rate : 067 BPM ?? P-R Int : 184 ms? QRS Dur : 084 ms ? ? QT Int : 420 ms ? ? ? P-R-T Axes : 054 -29 046 degrees ?? QTc Int : 443 ms ? 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 No acute findings identified in the abdomen/pelvis. 2.? Somewhat nodular 9 mm focus in the lingula. Small region of atelectasis versus consolidation is also noted in the anterior lingula. This is of uncertain chronicity, and follow-up chest CT in 3 months is recommended. Assessment and Plan Assessment Anesthesia Assessment: Chart Reviewed Documented by User: Saranya Zamorano MD 12/29/21 09:21 [facility] Past Medical History Medical History Anxiety Diabetes Diabetes Elevated cholesterol GERD (gastroesophageal reflux disease) Gout Hypertension Hypothyroid Family History Family history of problems with anesthesia: No Surgical History Surgical History History of bilateral knee replacement History of bronchoscopy History of incisional hernia repair Hx of section Hx of cholecystectomy Hx of hand surgery Hx of hysterectomy History of Problems with Anesthesia: No Social History Social History Household Members: Significant Other Housing: Homeless Do you presently have visiting nurse or other home services: No Alcohol intake: never Patient Tobacco Use Status: Never used Tobacco Use of substances other than those prescribed or required for medical reasons: No Are you DNR?: No Advance Directives: No Advance Directives Information Provided: Yes service: No Current occupational status: retired Meds Allergies Allergy/AdvReac Type Severity Reaction Status Date / Time meperidine [From DEMEROL] Allergy Unknown UNKNOWN Verified 12/29/21 07:51 morphine [MORPHINE] Allergy Unknown SLEEPY Verified 12/29/21 07:51 Home Medications Medication Instructions Recorded Confirmed Last Taken Type allopurinol 100 mg tablet 200 mg PO DAILY 05/16/21 12/29/21 Unknown History atorvastatin 40 mg tablet 40 mg PO DAILY 05/16/21 12/29/21 Unknown History glipizide 5 mg tablet 5 mg PO BID 05/16/21 12/29/21 Unknown History levothyroxine 88 mcg tablet 88 mcg PO DAILY 05/16/21 12/29/21 Unknown History lisinopril 20 1 tab PO DAILY 05/16/21 12/29/21 Unknown History mg-hydrochlorothiazide 25 mg tablet lorazepam 0.5 mg tablet 0.5 mg PO BEDTIME PRN anxiety 05/16/21 12/29/21 Unknown History omeprazole 40 mg capsule,delayed 40 mg PO DAILY 05/16/21 12/29/21 Unknown History release Exam Airway Mallampati Class: II TM Dist: >3cm Neck ROM: Full Denture: Upper and Lower Assessment and Plan Assessment Anesthesia Assessment: Anesthesia Plan Discussed Final Anesthetic Review Family History of Problems with Anesthesia: No History of Problems with Anesthesia: No NPO: Yes ASA Class: III Final Preanesthetic Review: No Changes in Pt Med Stat, Meds/Allgs Chart Reviewed, Consent Obtained/Reviewed and Anes Risks/Benef Reviewed Patient Risk: Intermediate Procedure Risk: Intermediate Anesthetic Plan Anesthetic Plan: GA Disposition: Standard PACU
[2021-12-29] VITALS (13 sets, daily range): BP systolic 131–150; BP diastolic 52–93; PULSE 58–77; RESP 16–18; TEMP 36.5; O2SAT 95–100; BMI 30.6
[2021-12-29 08:10] LABS: Glucose, Whole Blood 98 mg/dL (60-115)
[2021-12-29] MEDS: Lactated Ringers 1,000 ML 100 ML IVCONT (08:31)
--- NOTE | 2021-12-29 09:16 | MHC.SHP ---
Pre-Procedural Eval Section A Date of Service: 12/29/21 The patient is an INPATIENT: No The History & Physical has been completed within 30 days and I have reviewed it.: Yes Section B Chief Complaint: Malignant neoplasm of upper lobe, right bronchus o Allergies: Allergies Allergy/AdvReac Type Severity Reaction Status Date / Time meperidine [From DEMEROL] Allergy Unknown UNKNOWN Verified 12/29/21 07:51 morphine [MORPHINE] Allergy Unknown SLEEPY Verified 12/29/21 07:51 Plan I have reviewed the history and physical and performed a pertinent physical examination on my patient. No changes have occurred unless specified. Discussed bronchoscopy and mediastinoscopy with the patient which she understood and agreed to proceed.
--- NOTE | 2021-12-29 11:31 | W.PM.OPN ---
Operative Note Operative Note Date of Service: 12/29/21 Narrative: Preoperative diagnosis: Right upper lobe lung cancer and mediastinal lymphadenopathy Postoperative diagnosis: Same Operation: Bronchoscopy with aspiration and mediastinoscopy with mediastinal lymph node biopsies Surgeon:Amarilys Gold MD Recreation Leader: None Anesthesia: General Specimens: Precarinal Mediastinal/hilar lymph nodes EBL: Minimal Operation in detail: The patient was brought to the operating room, placed supine on the operative table, anesthesia monitoring devices were placed, and the patient was intubated without difficulty. A time-out was performed confirming the correct patient, site, and procedure. The bronchoscope was then inserted through the endotracheal tube and airways were visualized down to the subsegmental level with findings no endobronchial lesions and moderate secretions which were aspirated. The patient's head and neck with an extended any neck and chest were widely prepped and draped in a standard sterile fashion. After injection of local anesthetic, a 2 cm incision was made above the sternal notch and carried down with electrocautery in between the strap muscles directly onto the trachea. The pretracheal fascia was then incised with the Metzenbaum scissors. This pretracheal space was then developed bluntly with my finger. The video mediastinal scope was then inserted along the trachea and down to the joanne. We 1st visualized right paratracheal lymph/precarinal node and multiple grasper biopsies were taken and sent to pathology. Next, because the patient could not extend her neck very much at all when on the operating room table, had significant difficulty and spent an extra 45 minutes just trying to visualize additional lymph nodes. Given that on the PET scan the most suspicious and avid lymph node was the precarinal lymph node already taken I decided to stop at this point. Surgicel was used at each site and an opened up sponge was then placed into the pretracheal space and left to sit for 5 minutes by the clock. The sponge was removed and the scope was reinserted and hemostasis was achieved. The strap muscles were closed with a running 3-0 Vicryl suture. The platysma was closed with running 3-0 Vicryl suture. The skin was closed with running 3-0 Vicryl suture and Dermabond glue. The patient tolerated the procedure well, was extubated at the conclusion the operation, and brought to recovery room in stable condition.
[2021-12-29] MEDS: fentaNYL citrate/PF 100 MCG/2 ML VIAL 50 MCG IVPUSH ×2 (11:45→12:05)
[2021-12-29] MEDS: oxyCODONE HCl Immed Release 5 MG TABLET PO (12:32)
[2021-12-29] MEDS: Throat Lozenge, Medicated LOZENGE 1 LOZENGE MUCOUS MEM (13:53)
== END 2021-12-29 14:20 | disposition home or self-care (01) ==
PROVIDERS: PCP Physician Assistant Medical; Visit Provider Surgery
PROC: (CPT 31645; principal; 2021-12-29 09:10)
DX: C34.11 Malignant neoplasm of upper lobe, right bronchus or lung (principal); R59.0 Localized enlarged lymph nodes; K21.9 Gastro-esophageal reflux disease without esophagitis; I10 Essential (primary) hypertension; E11.9 Type 2 diabetes mellitus without complications; E03.9 Hypothyroidism, unspecified; E78.5 Hyperlipidemia, unspecified; M54.2 Cervicalgia; F41.1 Generalized anxiety disorder; Z79.84 Long term (current) use of oral hypoglycemic drugs; Z79.899 Other long term (current) drug therapy; Z88.8 Allergy status to other drugs, medicaments and biological substances
CPT/HCPCS: 31645; 39401; 82947; 88305; J0690; J1100; J2250; J2405; J3010

== ENCOUNTER 2022-04-22 10:07 | Outpatient (REF) | payer MEDICARE, SELFPAY ==
--- NOTE | ~2022-04-22 | XR_ITS ---
EXAMINATION: XR CHEST CLINICAL INFORMATION: Cough, unspecified COMPARISON: August 2020. TECHNIQUE: 2 views of the chest were obtained. FINDINGS: No new airspace consolidation. Pleural surfaces clear. There is elevation of the right diaphragm. There is a new 3.2 cm oval opacity projecting near the left hilum. A mass is considered. There may be a smaller slightly more inferior nodule projecting at the left base measuring 9 mm. There is slight blunting of a posterior sulcus which could reflect a minimal effusion or pleural reaction. Thoracic spondylitic change noted. XR/XR chest 2V IMPRESSION: New nodular opacities projecting on the left side. CT evaluation of the chest recommended as an outpatient for further clarification. Findings suggestive of a small posterior sulcus effusion.
[2022-04-22 12:43] LABS: Influenza A PCR NEGATIVE (Negative); Influenza B PCR NEGATIVE (Negative); Resp Syncy Virus RNA Qual PCR NEGATIVE (Negative); SARS COV2 PCR INHOUSE NEGATIVE (Negative)
== END 2022-04-22 10:08 | disposition home or self-care (01) ==
LOC: HO.HMGCX 10:07
PROVIDERS: Visit Provider Nurse Practitioner Family
DX: R05.9 Cough, unspecified (principal); R09.89 Other specified symptoms and signs involving the circulatory and respiratory systems; J02.9 Acute pharyngitis, unspecified; Z20.822 Contact with and (suspected) exposure to COVID-19
CPT/HCPCS: 0241U; 71046

== ENCOUNTER 2023-04-25 15:57 | Outpatient (AMB) | payer MEDICARE, SELFPAY ==
--- NOTE | 2023-04-25 15:58 | MHC.OFFWIV ---
Intake Vital Signs 04/25/23 15:59 Height 5 ft 1 in Weight 174 lb BMI 32.9 BP 134/80 Blood Pressure Location Lt brachial Position Sitting Pulse 88 Pulse Source Pulse Oximeter Temp 98.7 F Temp Source Temporal Artery Scan Pulse Oximetry (%) 96 Oxygen Delivery Method Room Air Intake Visit Reasons: EST/coughing and wheezing (lobby masked) Intake Note: pt is here today for coughing and wheezing started 2 days ago Patient Tobacco Use Status: Never used Tobacco Allergies meperidine [From DEMEROL] Allergy (Unknown, Verified 10/16/23 10:17) UNKNOWN morphine [MORPHINE] Allergy (Unknown, Verified 10/16/23 10:17) SLEEPY Medication List - Last Reconciled 04/25/23 by Bayron Wesley MD allopurinol 200 mg PO DAILY atorvastatin 40 mg PO DAILY glipizide 5 mg PO BID levothyroxine 88 mcg PO DAILY lisinopril-hydrochlorothiazide 20-25 mg 1 tab PO DAILY lorazepam 0.5 mg PO BEDTIME PRN omeprazole 20 mg PO DAILY Do you need a note to return to daycare/school/sports/work: No HPI EST/coughing and wheezing (lobby masked) HPI Details 77 yr old female presented to the office for a sick visit. Patient is reporting sx of shortness of breath and wheezing for the past few days. Has not tested for any viral infections. Non productive cough. PFSH Medical History Anxiety Elevated cholesterol Diabetes Hypothyroid GERD (gastroesophageal reflux disease) Hypertension Diabetes Gout Surgical History Hx of hysterectomy Hx of hand surgery History of incisional hernia repair Hx of section Hx of cholecystectomy History of bronchoscopy History of bilateral knee replacement Social History Household Members: Significant Other Housing: Homeless Do you presently have visiting nurse or other home services: No Alcohol intake: never Patient Tobacco Use Status: Never used Tobacco service: No Current occupational status: retired Physical Exam Vital Signs: Last Vital Signs Temp 98.7 F 04/25/23 15:59 Pulse 88 04/25/23 15:59 BP 134/80 04/25/23 15:59 Pulse Ox 96 04/25/23 15:59 Oxygen Delivery Method Room Air 04/25/23 15:59 BMI result Body Mass Index 32.9 Const General: cooperative and healthy appearing Nutritional Appearance: well nourished Orientation/consciousness: patient oriented x3 Limitations: no limitations HEENT Head: Yes normal to inspection Eyes General: appearance normal, both eyes and all related structures Neck Neck: Yes normal visual inspection Chest Chest palpation & inspection: normal palpation of entire chest wall Resp Other: Scattered wheeze bilaterally. Effort & Inspection: normal respiratory effort Neuro General: patient oriented x3 Assessment & Plan Assessment & Plan (1) Acute bronchitis: Code(s): J20.9 - Acute bronchitis, unspecified Plan: Cxr was unremarkable. Abx, prednisone and inhalers called in. If sx do not improve to follow up here. A viral swab was done and will call with the results. Orders: Orders XR chest 2V 04/25/23 R05.9 - Cough, unspecified SARS-CoV2/FLU/RSV 04/26/23 R43.9 - Unspecified disturbances of smell and taste Medications: New azithromycin take 500 mg today (day 1), then 250 mg for 4 days (days 2-5) PO 6 tabs 0RF albuterol sulfate 90 mcg/actuation (Ventolin HFA) 1 inh inhalation QID PRN 8.5 grams 1RF shortness of breath or wheezing prednisone 60 mg (3 x 20 mg) PO DAILY 9 tabs 0RF Coding Level of Care Code Est Pt Level 3 (31207) Diagnoses Acute bronchitis J20.9
[2023-04-25 15:59] VITALS: BP 134/80; PULSE 88; TEMP 37.1; O2SAT 96; BMI 32.9
== END 2023-04-25 16:47 | disposition home or self-care (01) ==
PROVIDERS: PCP Physician Assistant Medical; Visit Provider Internal Medicine
DX: J20.9 Acute bronchitis, unspecified (principal)
CPT/HCPCS: 99499

== ENCOUNTER 2023-04-25 16:21 | Outpatient (REF) | payer MEDICARE, SELFPAY ==
--- NOTE | ~2023-04-25 | XR_ITS ---
EXAMINATION: XR CHEST CLINICAL INFORMATION: Cough. COMPARISON: None available. TECHNIQUE: 2 views of the chest were obtained. FINDINGS: No significant abnormality is noted involving the heart, lungs, mediastinum, bony thorax or soft tissues. XR/XR chest 2V IMPRESSION: Unremarkable chest examination.
[2023-04-26 12:35] LABS: Influenza A PCR NEGATIVE (Negative); Influenza B PCR NEGATIVE (Negative); Resp Syncy Virus RNA Qual PCR NEGATIVE (Negative); SARS COV2 PCR INHOUSE NEGATIVE (Negative)
== END 2023-04-25 16:22 | disposition home or self-care (01) ==
LOC: HO.HMGCX 16:21
PROVIDERS: PCP Physician Assistant Medical; Visit Provider Internal Medicine
DX: Z11.52 Encounter for screening for COVID-19 (principal); Z20.822 Contact with and (suspected) exposure to COVID-19; R05.9 Cough, unspecified; R43.9 Unspecified disturbances of smell and taste
CPT/HCPCS: 0241U; 71046

== ENCOUNTER 2023-10-14 09:16 | Outpatient (AMB) | payer MEDICARE, SELFPAY ==
[2023-10-14 09:32] VITALS: BP 130/70; PULSE 55; TEMP 36.8; O2SAT 95; BMI 32.5
--- NOTE | 2023-10-14 09:32 | MHC.OFFWIV ---
Intake Vital Signs 10/14/23 09:32 Height 5 ft 1 in Weight 172 lb BMI 32.5 BP 130/70 Blood Pressure Location Lt brachial Position Sitting Pulse 55 Pulse Source Pulse Oximeter Temp 98.3 F Temp Source Oral Pulse Oximetry (%) 95 Oxygen Delivery Method Room Air Intake Visit Reasons: EP diarrhea 3 days Patient Tobacco Use Status: Never used Tobacco Allergies meperidine [From DEMEROL] Allergy (Unknown, Verified 10/16/23 10:17) UNKNOWN morphine [MORPHINE] Allergy (Unknown, Verified 10/16/23 10:17) SLEEPY HPI EP diarrhea 3 days HPI Details Patient is a 78-year-old female with comorbid history, some of which include diabetes, hypertension and anxiety, who comes to the walk-in clinic complaining of 3 days of nausea, loose stools, epigastric abdominal discomfort, intermittent chills with low-grade fever (highest at 99.8) and fatigue, and now worries that she is developing dehydration. Initially she had reported that she had taken Imodium ED for constipation, which led to diarrhea. However she then clarified that loose stools on the other viral type symptoms had preceded the Imodium AD. She only took 1 dose, and then did not take any today. Her symptoms are improved as of today, and she has no fever, weakness or dizziness, blood in the stool or coffee-grounds type stools, myalgias or malaise, vomiting, headache, low abdomen or pelvic pain, flank or back pain, urinary symptoms, chest pain or shortness of breath, or other significant associated symptoms. She reports she was able to tolerate bread today, and crackers which she took with her medication. She is nervous about increasing water intake so as not to re aggravate the loose stools. [facility] Medical History Anxiety Elevated cholesterol Diabetes Hypothyroid GERD (gastroesophageal reflux disease) Hypertension Diabetes Gout Surgical History Hx of hysterectomy Hx of hand surgery History of incisional hernia repair Hx of section Hx of cholecystectomy History of bronchoscopy History of bilateral knee replacement Social History Household Members: Significant Other Housing: Homeless Do you presently have visiting nurse or other home services: No Alcohol intake: never Patient Tobacco Use Status: Never used Tobacco service: No Current occupational status: retired Review of Systems Const All systems reviewed & are unremarkable except as noted in HPI and below Physical Exam Vital Signs: Last Vital Signs Temp 98.3 F 10/14/23 09:32 Pulse 55 10/14/23 09:32 BP 130/70 10/14/23 09:32 Pulse Ox 95 10/14/23 09:32 Oxygen Delivery Method Room Air 10/14/23 09:32 BMI result Body Mass Index 32.5 Const General: cooperative, healthy appearing, comfortable, no acute distress, alert, awake, Physically active and well groomed; No anxious, diaphoretic, ill appearing, intoxicated appearing, poor hygiene or tired appearing Nutritional Appearance: average body habitus Orientation/consciousness: oriented to person Limitations: no limitations Eyes General: appearance normal, both eyes and all related structures Chest Chest palpation & inspection: normal palpation of entire chest wall Resp Effort & Inspection: normal respiratory effort, able to speak in complete sentences, no audible wheezes, no cough, no grunting, not labored, no nasal flaring, no retractions and symmetric chest movement Auscultation: clear to auscultation bilaterally, no crackles, no rales, no rhonchi, no wheezes, lung sounds not diminished and No rub present Cardio Palpation: normal PMI Rate: regular rate Rhythm: regular rhythm Heart sounds: S1 normal heart sound present and S2 normal heart sound present GI Inspection: Yes normal to inspection and No distended Palpation (GI): Soft to palpation, not firm, Tenderness to palpation present (GI) in the epigastrum, no guarding, not rigid, No hepatosplenomegaly present and no masses Auscultation: normal bowel sounds General: Yes no CVA tenderness Back/Spine/Pelvis Back: no CVA tenderness Skin Other: Good color, warm and dry Neuro General: oriented to person Psych Appearance: grossly normal Mental Status: mental status grossly normal Speech and movement: Normal speech and movement present Affect: normal affect Attitude: cooperative Thought process: Normal thought process present Insight: Good insight present (Psych) Judgement: Good judgement present (Psych) Results AMB Urinalysis, Automated UA Leukoctes 0 Aminah/uL Last Edit by Shi Goldberg CMA on 10/14/23 10:44 UA Nitrite Negative Last Edit by Shi Goldberg CMA on 10/14/23 10:44 UA Urobilinogen 0.2 mg/dL Last Edit by Shi Goldberg CMA on 10/14/23 10:44 UA Protein 0 mg/dL Last Edit by Shi Goldberg CMA on 10/14/23 10:44 UA pH 6.0 Last Edit by Shi Goldberg, CALE on 10/14/23 10:44 UA Blood 0 Aquilino/uL Last Edit by Shi Goldberg CMA on 10/14/23 10:44 UA Specific [place] 1.010 Last Edit by Shi Goldberg, CALE on 10/14/23 10:44 UA Ketone Negative Last Edit by Shi Goldberg CMA on 10/14/23 10:44 UA Bilirubin 0 mg/dL Last Edit by Shi Goldberg CMA on 10/14/23 10:44 UA Glucose 0 mg/dL Last Edit by Shi Goldberg CMA on 10/14/23 10:44 Results Reviewed Results Reviewed: Laboratory Last Values Urine pH (Auto) 6.0 10/14/23 10:43 Specific [place] (Auto) 1.010 10/14/23 10:43 Urine Protein (Auto) 0 mg/dL 10/14/23 10:43 Glucose (UA)(Auto) 0 mg/dL 10/14/23 10:43 Urine Ketones (Auto) Negative 10/14/23 10:43 Urine Blood (Auto) 0 Aquil[place]/uL 10/14/23 10:43 Urine Nitrite (Auto) Negative 10/14/23 10:43 Urine Bilirubin (Auto) 0 mg/dL 10/14/23 10:43 Urine Urobilinogen (Auto) 0.2 mg/dL 10/14/23 10:43 Leukocyte Esterase (Auto) 0 Aminah/uL 10/14/23 10:43 Unremarkable urinalysis Assessment & Plan Assessment & Plan (1) Gastroenteritis: Code(s): K52.9 - Noninfective gastroenteritis and colitis, unspecified Plan Patient is a 70-year-old female with what appears to be gastroenteritis. Flu COVID and RSV testing are pending. She seems to be improving today, as she is not febrile and her vitals are stable, and she was able to tolerate oral intake with some crackers and toast. She has had no significant nausea and no vomiting. Her abdomen is only mildly tender over the epigastric area, an otherwise does not appear to be a surgical abdomen. Her urine was unremarkable. While the source of her symptoms are not completely clear, I think it is most likely that this is a viral syndrome, which does seem to be improving. She is worried about dehydration as she has not had adequate water intake, since she is worried that even water will cause loose stools. We discussed that she needs to get appropriate water intake to avoid dehydration, and that she should take the Imodium AD if needed today. A prescription Lomotil was considered, but she has an allergy listed for meperidine, so it was not sent. She also had only done 1 dose of Lomotil yesterday, and she is already starting to improve today, so restarting this seems more reasonable. We discussed that she should monitor her symptoms very closely due to her age and her diabetes, and follow-up on Monday if the diarrhea persists. She was advised to go to the emergency department with any worrisome symptoms. Orders: Orders AMB Urinalysis Automated 10/14/23 Z13.9 - Encounter for screening, unspecified [employer] Covid-19 Ag 10/14/23 Z20.822 - Contact with and (suspected) exposure to COVID-19 SARS-CoV2/FLU/RSV 10/14/23 J06.9 - Acute upper respiratory infection, unspecified Coding Level of Care Code Est Pt Level 4 (49282) Diagnoses Gastroenteritis K52.9
== END 2023-10-14 10:54 | disposition home or self-care (01) ==
PROVIDERS: PCP Physician Assistant Medical; Visit Provider Physician Assistant Medical
DX: K52.9 Noninfective gastroenteritis and colitis, unspecified (principal)
CPT/HCPCS: 81003; 99051; 99214

== ENCOUNTER 2023-10-14 10:52 | Outpatient (REF) | payer MEDICARE, SELFPAY ==
[2023-10-14 11:07] LABS: Binax Now Covid-19 Ag Negative (Negative)
[2023-10-14 11:08] LABS: Binax Internal Control QC Valid
[2023-10-14 14:08] LABS: Influenza A PCR NEGATIVE (Negative); Influenza B PCR NEGATIVE (Negative); Resp Syncy Virus RNA Qual PCR NEGATIVE (Negative); SARS COV2 PCR INHOUSE NEGATIVE (Negative)
== END 2023-10-14 10:53 | disposition home or self-care (01) ==
LOC: HO.HMGCLDS 10:52
PROVIDERS: PCP Physician Assistant Medical; Visit Provider Physician Assistant Medical
DX: Z20.822 Contact with and (suspected) exposure to COVID-19 (principal); J06.9 Acute upper respiratory infection, unspecified
CPT/HCPCS: 0241U; 87811

== ENCOUNTER 2023-10-16 09:15 | Outpatient (AMB) | payer MEDICARE, SELFPAY ==
--- NOTE | 2023-10-16 10:17 | MHC.OFFWIV ---
Intake Vital Signs 10/16/23 10:18 Height 5 ft 1 in Weight 78.018 kg BMI 32.5 BP 120/72 Blood Pressure Location Lt brachial Position Sitting Pulse 56 Pulse Source Pulse Oximeter Temp 97.6 F Temp Source Temporal Artery Scan Pulse Oximetry (%) 96 Oxygen Delivery Method Room Air Intake Visit Reasons: pain in stomach- see comments Intake Note: pt c/o abdominal pain. Has been ongoing Patient Tobacco Use Status: Never used Tobacco Allergies meperidine [From DEMEROL] Allergy (Unknown, Verified 10/16/23 10:17) UNKNOWN morphine [MORPHINE] Allergy (Unknown, Verified 10/16/23 10:17) SLEEPY Do you need a note to return to daycare/school/sports/work: No HPI pain in stomach- see comments HPI Details Patient presents with continued pain in her stomach x3 weeks. She was seen in this clinic by another provider 2 days ago, I have reviewed this note labs done at that time. Patient notes severe pain awakens her at 05:00 each morning in the epigastric area she tries to eat which makes the pain worse. She is tolerating small amounts of food and fluid. No recent episodes of vomiting. She does continue to have bowel movements which occasionally involve diarrhea. She denies melena or hematochezia. Patient does has comorbidities of diabetes and chronic kidney disease. Last labs drawn here at our clinic did show anemia. Patient admits to weakness and some shortness of breath. She notes a.m. blood sugar this morning was 116. [facility] Medical History Anxiety Elevated cholesterol Diabetes Hypothyroid GERD (gastroesophageal reflux disease) Hypertension Diabetes Gout Surgical History Hx of hysterectomy Hx of hand surgery History of incisional hernia repair Hx of section Hx of cholecystectomy History of bronchoscopy History of bilateral knee replacement Social History Household Members: Significant Other Housing: Homeless Do you presently have visiting nurse or other home services: No Alcohol intake: never Patient Tobacco Use Status: Never used Tobacco service: No Current occupational status: retired Review of Systems Const Reports as per HPI and Reports no additional complaints Card Reports as per HPI and Reports no additional complaints Resp Reports as per HPI and Reports no additional complaints GI Reports as per HPI and Reports no additional complaints Reports as per HPI Neuro Reports no additional complaints and Reports as per HPI Physical Exam Vital Signs: Last Vital Signs Temp 97.6 F 10/16/23 10:18 Pulse 56 10/16/23 10:18 BP 120/72 10/16/23 10:18 Pulse Ox 96 10/16/23 10:18 Oxygen Delivery Method Room Air 10/16/23 10:18 BMI result Body Mass Index 32.5 Const General: cooperative, comfortable and no acute distress Orientation/consciousness: patient oriented x3 Resp Effort & Inspection: able to speak in complete sentences (Does struggle at times with mild shortness of breath) Auscultation: clear to auscultation bilaterally Cardio Rate: regular rate Rhythm: regular rhythm Heart sounds: S1 normal heart sound present and S2 normal heart sound present GI Inspection: Yes normal to inspection Palpation (GI): Soft to palpation and Tenderness to palpation present (GI) in the epigastrum and in the LUQ Neuro General: patient oriented x3 Assessment & Plan Assessment & Plan (1) Epigastric pain: Code(s): R10.13 - Epigastric pain Plan: Given patient's age and comorbidities along with prolonged GI illness and epigastric pain I have advised patient to be seen and evaluated in Emergency Department. Differential is wide including acute kidney injury, pancreatitis, gastritis, gastric bleed, worsening anemia. She is stable and her is here to drive her so she will go by car. I have called in expect to the [facility] ER where she plans to go. Follow-up with PCP post hospital. Coding Level of Care Code Est Pt Level 4 (56339) Diagnoses Epigastric pain R10.13
[2023-10-16 10:18] VITALS: BP 120/72; PULSE 56; TEMP 36.4; O2SAT 96; BMI 32.5
== END 2023-10-16 10:51 | disposition home or self-care (01) ==
PROVIDERS: PCP Physician Assistant Medical; Visit Provider Physician Assistant
DX: R10.13 Epigastric pain (principal)
CPT/HCPCS: 99214